=== PATIENT | female | born 1945 | race Two or more races ===

== ENCOUNTER 2017-08-23 00:16 | Emergency (ER) | payer MEDICARE, BC ==
[~2017-08-23] VITALS: Ht 154.9 cm; Wt 68.0 kg
[~2017-08-23 00:16] MED LIST: ALBU90OI INH; AMOX500; ASPI325; ASPI81EC PO; ATOR20 PO; Antivert25 MG PO; BASAGLAR K100 UNIT/1 SC; BIOTIN1 MG; BIOTIN1 MG PO; CEFP200 PO; CEPH500 PO; CHOL10002; CILO100 PO; CIPR250 PO; CIPR500 PO; CLIN300 PO; CLON.5 PO; CLOP75 PO; Cipro250 MG PO; Cleocin HCl300 MG PO; DIPASPER PO; DOCU100 PO; Diovan160 MG PO; Diovan320 MG PO; EXEN10PI SC; FURO40 PO; FURO80 PO; GABA100 PO; GABA300 PO; GLIP5ER PO; INSLI100I SUBQ; INSULANI SUBQ; INSULANPEN SC; Januvia50 MG PO; LIRA0.6P SC; LISI5 PO; MECL25 PO; METF500 PO; METF500C PO; Meribin5 MG PO; Micro-K10 MEQ PO; Motion Sickness25 M1 PO; NITR100CA PO; NYSTRI30T TOP; Novolog Fl100 UNIT/1 SC; OMEP40CA12 PO; ONDA4 PO; PIOG15 PO; POTCHL10ER PO; PREG100 PO; PREG25; PREG25 PO; PREG50 PO; PROM25 PO; Percocet 5-3251 EACH PO; Plavix75 MG PO; TRAM50; VALS80 PO; Zofran Odt4 MG SL; Zofran Odt8 MG SL; Zofran4 MG PO; [UNRECOGNIZED DRUG - SUPPLY] MC
[2017-08-23] MEDS ORDERED: ATOR10 PO (03:37)
[2017-08-23] MEDS ORDERED: CLON.5 PO (03:38)
== END 2017-08-23 03:46 | disposition home or self-care (01) ==
LOC: ER 00:16
DX: E11.65 Type 2 diabetes mellitus with hyperglycemia (principal); Z88.5 Allergy status to narcotic agent; Z88.8 Allergy status to other drugs, medicaments and biological substances; Z88.1 Allergy status to other antibiotic agents; Z79.899 Other long term (current) drug therapy; Z79.4 Long term (current) use of insulin; I10 Essential (primary) hypertension
CPT/HCPCS: 82947; 99283

== ENCOUNTER 2017-12-26 18:47 | Emergency (ER) | payer MEDICARE, BC ==
[~2017-12-26] VITALS: Ht 154.9 cm; Wt 77.1 kg
[~2017-12-26 18:47] MED LIST changes: +ATOR10 PO
[2017-12-26 19:44] LABS: Source, Urine Clean Catch
[2017-12-26 19:45] LABS: BASOPHILS PERCENT AUTO 0 % (0-2); EOSINOPHILS ABSOLUTE AUTO 0.01 K/mm3 (0.00-0.68); EOSINOPHILS PERCENT AUTO 0 % (0-6); Hematocrit 39.3 % (33.0-51.0); Hemoglobin 13.1 g/dL (11.5-16.0); IMMATURE GRAN ABSOLUTE AUTO 0.04 K/mm3 (0.00-0.10); IMMATURE GRAN PERCENT AUTO 1 % (0-1); LYMPHOCYTES ABSOLUTE AUTO 1.22 K/mm3 (0.84-5.20); LYMPHOCYTES PERCENT AUTO 15 % (21-46); MONOCYTES ABSOLUTE AUTO 0.34 K/mm3 (0.16-1.47); MONOCYTES PERCENT AUTO 4 % (4-13); Mean Corpuscular HGB 29.2 pg (26.0-34.0); Mean Corpuscular HGB Conc 33.3 g/dL (31.5-36.5); Mean Corpuscular Volume 88 fL (80-100); NEUTROPHILS ABSOLUTE AUTO 6.81 K/mm3 (1.96-9.15); NEUTROPHILS PERCENT AUTO 81 % (41-73); Platelet Count 143 K/mm3 (150-400); RDW Coefficient Variation 13.4 % (11.7-14.2); RDW Standard Deviation 42.7 fL (35.1-46.3); Red Blood Cell Count 4.48 M/mm3 (3.80-5.20); White Blood Cell Count 8.42 K/mm3 (4.00-11.30)
[2017-12-26 19:47] LABS: Mean Platelet Volume 13.7 fL (9.1-12.4)
[2017-12-26 19:47] LABS: Bilirubin, Urine Neg (Neg); Blood, Urine 1+ (Neg); Glucose Qualitative, Urine 4+ (Neg); Ketones, Urine Neg (Neg); Leukocyte Esterase, Urine 1+ (Neg); Nitrite, Urine Neg (Neg); Protein, Urine 1+ (Neg); Urobilinogen, Urine NORM (Normal)
[2017-12-26 19:48] LABS: Appearance, Urine Clear (Clear); Color, Urine Yellow (P-Yellow)
[2017-12-26 19:52] LABS: Bacteria Many /hpf; Squamous Epithelial Cells Rare /hpf (Few); White Blood Cells, Urine 0-2 /hpf (0-5)
[2017-12-26 20:01] LABS: Albumin, Blood 3.7 g/dL (3.4-5.0); Albumin/Globulin Ratio 0.9 (0.8-1.8); Bilirubin, Total 0.2 mg/dL (0.1-1.0); Bun/Creatinine Ratio 27.9 (12.0-20.0); Calcium, Blood 8.4 mg/dL (8.5-10.1); Creatinine, Blood 2.47 mg/dL (0.40-1.00); Potassium, Blood 4.6 mmol/L (3.5-5.5); Total Protein, Blood 7.7 g/dL (6.4-8.2)
[2017-12-27] MEDS ORDERED: CEPH500 PO (13:58)
== END 2017-12-26 22:26 | disposition home or self-care (01) ==
LOC: ER 18:47
PROVIDERS: Emergency Medicine
DX: E11.65 Type 2 diabetes mellitus with hyperglycemia (principal); I12.9 Hypertensive chronic kidney disease with stage 1 through stage 4 chronic kidney disease, or unspecified chronic kidney disease; E11.22 Type 2 diabetes mellitus with diabetic chronic kidney disease; N18.9 Chronic kidney disease, unspecified; K21.9 Gastro-esophageal reflux disease without esophagitis; E78.5 Hyperlipidemia, unspecified; Z86.73 Personal history of transient ischemic attack (TIA), and cerebral infarction without residual deficits; Z79.899 Other long term (current) drug therapy; Z79.4 Long term (current) use of insulin
CPT/HCPCS: 36415; 80053; 81001; 82947; 85025; 87077; 87086; 87186; 96360; 99284-25; J1815; J7030

== ENCOUNTER 2018-02-16 16:18 | Observation (INO) | payer MEDICARE, BC ==
[~2018-02-16] VITALS: Ht 157.5 cm; Wt 84.2 kg
[~2018-02-16 16:18] MED LIST changes: +CHOL10002 PO; +FURO20 PO
[2018-02-16 16:49] LABS: BASOPHILS ABSOLUTE AUTO 0.02 K/mm3 (0.00-0.23); BASOPHILS PERCENT AUTO 0 % (0-2); EOSINOPHILS ABSOLUTE AUTO 0.29 K/mm3 (0.00-0.68); EOSINOPHILS PERCENT AUTO 5 % (0-6); Hematocrit 36.9 % (33.0-51.0); Hemoglobin 11.8 g/dL (11.5-16.0); IMMATURE GRAN ABSOLUTE AUTO 0.02 K/mm3 (0.00-0.10); IMMATURE GRAN PERCENT AUTO 0 % (0-1); LYMPHOCYTES ABSOLUTE AUTO 0.95 K/mm3 (0.84-5.20); LYMPHOCYTES PERCENT AUTO 15 % (21-46); MONOCYTES PERCENT AUTO 8 % (4-13); Mean Corpuscular HGB 29.4 pg (26.0-34.0); Mean Corpuscular Volume 92 fL (80-100); NEUTROPHILS ABSOLUTE AUTO 4.38 K/mm3 (1.96-9.15); NEUTROPHILS PERCENT AUTO 71 % (41-73); Platelet Count 99 K/mm3 (150-400); RDW Coefficient Variation 14.3 % (11.7-14.2); RDW Standard Deviation 47.6 fL (35.1-46.3); Red Blood Cell Count 4.01 M/mm3 (3.80-5.20); White Blood Cell Count 6.16 K/mm3 (4.00-11.30)
[2018-02-16 16:50] LABS: Mean Platelet Volume 13.2 fL (9.1-12.4)
[2018-02-16 17:01] LABS: International Normalized Ratio 0.99; Prothrombin Time Results 10.2 Sec (9.7-11.5)
[2018-02-16 17:12] LABS: Alanine Aminotransfer (ALT/SGP 62 U/L (12-78); Albumin, Blood 3.2 g/dL (3.4-5.0); Albumin/Globulin Ratio 0.9 (0.8-1.8); Alk Phos 83 U/L (50-136); Anion Gap 12 mmol/L (6-16); Aspartate Aminotrans (AST/SGOT 44 U/L (12-37); Bilirubin, Total 0.2 mg/dL (0.1-1.0); Blood Urea Nitrogen 67 mg/dL (8-24); Bun/Creatinine Ratio 15.8 (12.0-20.0); CO2, Blood 21 mmol/L (21-32); Calcium, Blood 8.7 mg/dL (8.5-10.1); Chloride, Blood 110 mmol/L (98-108); Creatinine, Blood 4.23 mg/dL (0.40-1.00); Ethanol (Alcohol), Blood, Med <3 mg/dL; Globulin, Blood 3.7 g/dL (2.2-4.0); Glomerular Filtration Rate 11 (60-); Glucose, Blood 72 mg/dL (70-99); Potassium, Blood 3.5 mmol/L (3.5-5.5); Sodium, Blood 143 mmol/L (136-145); Total Protein, Blood 6.9 g/dL (6.4-8.2)
[2018-02-16 18:18] LABS: Source, Urine Catheter
[2018-02-16 18:34] LABS: Blood, Urine 4+ (Neg); Glucose Qualitative, Urine Neg (Neg); Ketones, Urine 1+ (Neg); Leukocyte Esterase, Urine 1+ (Neg); Nitrite, Urine Neg (Neg); Protein, Urine 2+ (Neg); Urobilinogen, Urine NORM (Normal)
[2018-02-16 19:05] LABS: U Amphetamine Screen Not Detected; U Barbituate Screen Not Detected; U Benzodiazapine Screen Not Detected; U Cannabinoids Screen Not Detected; U Cocaine Screen Not Detected; U Methadone Screen Not Detected; U Methamphetamine Screen Not Detected; U Opiates Screen Not Detected; U Phencyclidine Screen Not Detected
[2018-02-16 19:06] LABS: U Buprenorphine Screen Not Detected; U Oxycodone Screen Not Detected; U Propoxyphene Screen Not Detected
[2018-02-16 19:14] LABS: Appearance, Urine Clear (Clear); Bilirubin, Urine 2+ (Neg); Color, Urine Yellow (P-Yellow)
[2018-02-16 19:15] LABS: Bacteria Mod /hpf; Red Blood Cells, Urine 25-50 /hpf (0-2); Squamous Epithelial Cells Mod /hpf (Few)
[2018-02-17 06:12] LABS: Source, Urine Clean Catch
[2018-02-17 06:14] LABS: Bilirubin, Urine Neg (Neg); Blood, Urine 1+ (Neg); Glucose Qualitative, Urine 2+ (Neg); Ketones, Urine Neg (Neg); Leukocyte Esterase, Urine Neg (Neg); Nitrite, Urine Neg (Neg); Protein, Urine 2+ (Neg); Specific Gravity, Urine 1.015 (1.003-1.022); Urobilinogen, Urine NORM (Normal)
[2018-02-17 06:22] LABS: Hematocrit 32.3 % (33.0-51.0); Hemoglobin 10.2 g/dL (11.5-16.0); Mean Corpuscular HGB 28.6 pg (26.0-34.0); Mean Corpuscular HGB Conc 31.6 g/dL (31.5-36.5); Mean Corpuscular Volume 91 fL (80-100); RDW Coefficient Variation 14.3 % (11.7-14.2); RDW Standard Deviation 46.5 fL (35.1-46.3); Red Blood Cell Count 3.57 M/mm3 (3.80-5.20); White Blood Cell Count 4.77 K/mm3 (4.00-11.30)
[2018-02-17 06:47] LABS: Platelet Count 90 K/mm3 (150-400)
[2018-02-17 06:54] LABS: Albumin, Blood 2.6 g/dL (3.4-5.0); Albumin/Globulin Ratio 0.8 (0.8-1.8); Bilirubin, Total 0.2 mg/dL (0.1-1.0); Bun/Creatinine Ratio 18.9 (12.0-20.0); Calcium, Blood 7.9 mg/dL (8.5-10.1); Creatinine, Blood 3.17 mg/dL (0.40-1.00); Globulin, Blood 3.4 g/dL (2.2-4.0); Potassium, Blood 4.4 mmol/L (3.5-5.5)
[2018-02-17 07:13] LABS: Appearance, Urine Clear (Clear); Color, Urine Yellow (P-Yellow)
[2018-02-17 07:19] LABS: Bacteria Mod /hpf
[2018-02-17 07:20] LABS: Transitional Epithelial Cells Rare /hpf (0-Rare)
[2018-02-17 07:22] LABS: Red Blood Cells, Urine 0-2 /hpf (0-2)
[2018-02-17 07:25] LABS: Squamous Epithelial Cells Few /hpf (Few); White Blood Cells, Urine 0-2 /hpf (0-5)
[2018-02-17 07:28] LABS: Mucus Light (0-Heavy)
[2018-02-17] MEDS ORDERED: Humalog100 UNIT/1 (13:48)
== END 2018-02-17 14:54 | disposition home or self-care (01) ==
LOC: ER 16:18 → MEDS 16:19 → ER 19:58 → MEDS 19:58
PROVIDERS: Emergency Medicine; Internal Medicine
DX: G93.40 Encephalopathy, unspecified (principal); E11.649 Type 2 diabetes mellitus with hypoglycemia without coma; I12.9 Hypertensive chronic kidney disease with stage 1 through stage 4 chronic kidney disease, or unspecified chronic kidney disease; E11.22 Type 2 diabetes mellitus with diabetic chronic kidney disease; N18.3 Chronic kidney disease, stage 3 (moderate); N17.9 Acute kidney failure, unspecified; E78.00 Pure hypercholesterolemia, unspecified; E11.40 Type 2 diabetes mellitus with diabetic neuropathy, unspecified; K59.00 Constipation, unspecified; Z86.73 Personal history of transient ischemic attack (TIA), and cerebral infarction without residual deficits; Z79.899 Other long term (current) drug therapy; Z88.1 Allergy status to other antibiotic agents; Z88.5 Allergy status to narcotic agent; Z88.8 Allergy status to other drugs, medicaments and biological substances
CPT/HCPCS: 36415; 51701; 70450; 71046; 76770; 80053; 81001; 82947; 83605; 84145; 85025; 85027; 85610; 87040; 87086; 90686; 93005; 93010; 96361; 96374; 96375; 99285-25; G0008; G0378; G0480; J0696; J1650; J7030

== ENCOUNTER 2018-12-05 22:13 | Emergency (ER) | payer MEDICARE, BC ==
[~2018-12-05] VITALS: Ht 154.9 cm; Wt 86.3 kg
[~2018-12-05 22:13] MED LIST changes: +Bactrim Ds Tab1 EACH PO; +CEPH250A PO; +Humalog100 UNIT/1
== END 2018-12-06 00:07 | disposition home or self-care (01) ==
LOC: ER 22:13
DX: S09.90XA Unspecified injury of head, initial encounter (principal); W10.9XXA Fall (on) (from) unspecified stairs and steps, initial encounter; Z88.5 Allergy status to narcotic agent; Z88.1 Allergy status to other antibiotic agents; Z88.8 Allergy status to other drugs, medicaments and biological substances; Z79.899 Other long term (current) drug therapy; Z79.4 Long term (current) use of insulin; Z86.73 Personal history of transient ischemic attack (TIA), and cerebral infarction without residual deficits; E11.9 Type 2 diabetes mellitus without complications; I10 Essential (primary) hypertension
CPT/HCPCS: 70450; 99283-25; A9270

== ENCOUNTER 2019-03-24 14:39 | Emergency (ER) | payer MEDICARE, BC ==
[~2019-03-24] VITALS: Ht 154.9 cm; Wt 83.5 kg
== END 2019-03-24 15:59 | disposition home or self-care (01) ==
LOC: ER 14:39
DX: Z48.00 Encounter for change or removal of nonsurgical wound dressing (principal); I10 Essential (primary) hypertension; Z86.73 Personal history of transient ischemic attack (TIA), and cerebral infarction without residual deficits; Z88.5 Allergy status to narcotic agent; Z88.1 Allergy status to other antibiotic agents; Z88.8 Allergy status to other drugs, medicaments and biological substances; Z79.899 Other long term (current) drug therapy; Z79.4 Long term (current) use of insulin

== ENCOUNTER 2019-04-01 20:34 | Emergency (ER) | payer MEDICARE, BC ==
[~2019-04-01] VITALS: Ht 154.9 cm; Wt 88.5 kg
[2019-04-01] MEDS ORDERED: BASAGLAR SC (21:11)
[2019-04-01 21:12] LABS: BASOPHILS ABSOLUTE AUTO 0.02 K/mm3 (0.00-0.23); BASOPHILS PERCENT AUTO 0 % (0-2); EOSINOPHILS ABSOLUTE AUTO 0.12 K/mm3 (0.00-0.68); EOSINOPHILS PERCENT AUTO 3 % (0-6); Hematocrit 33.5 % (33.0-51.0); Hemoglobin 10.6 g/dL (11.5-16.0); IMMATURE GRAN ABSOLUTE AUTO 0.01 K/mm3 (0.00-0.10); IMMATURE GRAN PERCENT AUTO 0 % (0-1); LYMPHOCYTES ABSOLUTE AUTO 1.29 K/mm3 (0.84-5.20); LYMPHOCYTES PERCENT AUTO 26 % (21-46); MONOCYTES ABSOLUTE AUTO 0.35 K/mm3 (0.16-1.47); MONOCYTES PERCENT AUTO 7 % (4-13); Mean Corpuscular HGB 29.9 pg (26.0-34.0); Mean Corpuscular HGB Conc 31.6 g/dL (31.5-36.5); Mean Corpuscular Volume 95 fL (80-100); Mean Platelet Volume 12.7 fL (9.1-12.4); NEUTROPHILS ABSOLUTE AUTO 3.09 K/mm3 (1.96-9.15); NEUTROPHILS PERCENT AUTO 63 % (41-73); Platelet Count 137 K/mm3 (150-400); RDW Coefficient Variation 13.3 % (11.7-14.2); RDW Standard Deviation 45.7 fL (35.1-46.3); Red Blood Cell Count 3.54 M/mm3 (3.80-5.20); White Blood Cell Count 4.88 K/mm3 (4.00-11.30)
[2019-04-01 21:32] LABS: Albumin, Blood 3.2 g/dL (3.4-5.0); Albumin/Globulin Ratio 0.9 (0.8-1.8); Beta-hydroxybutyrate 0.7 mg/dL (0.2-2.8); Bilirubin, Total 0.3 mg/dL (0.1-1.0); Bun/Creatinine Ratio 17.9 (12.0-20.0); Calcium, Blood 8.5 mg/dL (8.5-10.1); Creatinine, Blood 2.35 mg/dL (0.40-1.00); Globulin, Blood 3.6 g/dL (2.2-4.0); Potassium, Blood 4.6 mmol/L (3.5-5.5); Total Protein, Blood 6.8 g/dL (6.4-8.2)
== END 2019-04-01 21:55 | disposition home or self-care (01) ==
LOC: ER 20:34
PROVIDERS: Physician Assistant
DX: E11.65 Type 2 diabetes mellitus with hyperglycemia (principal); I10 Essential (primary) hypertension; E11.9 Type 2 diabetes mellitus without complications; Z86.73 Personal history of transient ischemic attack (TIA), and cerebral infarction without residual deficits; Z88.5 Allergy status to narcotic agent; Z88.1 Allergy status to other antibiotic agents; Z88.8 Allergy status to other drugs, medicaments and biological substances; Z79.899 Other long term (current) drug therapy; Z79.4 Long term (current) use of insulin
CPT/HCPCS: 36415; 80053; 82010; 82947; 85025; 99283; J7030

== ENCOUNTER → 2019-08-01 | Outpatient (CLI) | payer MEDICARE, BC ==
[~2019-08-01] MED LIST changes: +BASAGLAR SC
[2019-08-01 18:35] LABS: BASOPHILS ABSOLUTE AUTO 0.04 K/mm3 (0.00-0.23); BASOPHILS PERCENT AUTO 1 % (0-2); EOSINOPHILS ABSOLUTE AUTO 0.16 K/mm3 (0.00-0.68); EOSINOPHILS PERCENT AUTO 2 % (0-6); Hematocrit 32.6 % (33.0-51.0); Hemoglobin 10.3 g/dL (11.5-16.0); IMMATURE GRAN ABSOLUTE AUTO 0.02 K/mm3 (0.00-0.10); IMMATURE GRAN PERCENT AUTO 0 % (0-1); LYMPHOCYTES ABSOLUTE AUTO 1.04 K/mm3 (0.84-5.20); LYMPHOCYTES PERCENT AUTO 14 % (21-46); MONOCYTES ABSOLUTE AUTO 0.46 K/mm3 (0.16-1.47); MONOCYTES PERCENT AUTO 6 % (4-13); Mean Corpuscular HGB 28.8 pg (26.0-34.0); Mean Corpuscular HGB Conc 31.6 g/dL (31.5-36.5); Mean Platelet Volume 12.4 fL (9.1-12.4); NEUTROPHILS ABSOLUTE AUTO 5.62 K/mm3 (1.96-9.15); NEUTROPHILS PERCENT AUTO 77 % (41-73); Platelet Count 304 K/mm3 (150-400); RDW Coefficient Variation 13.6 % (11.7-14.2); RDW Standard Deviation 45.3 fL (35.1-46.3); Red Blood Cell Count 3.58 M/mm3 (3.80-5.20); White Blood Cell Count 7.34 K/mm3 (4.00-11.30)
[2019-08-01 18:38] LABS: Mean Corpuscular Volume 91 fL (80-100)
[2019-08-01 18:44] LABS: Creatinine, Blood 2.08 mg/dL (0.40-1.00); Potassium, Blood 5.3 mmol/L (3.5-5.5)
[2019-08-01 18:45] LABS: Albumin/Globulin Ratio 0.6 (0.8-1.8); Bilirubin, Total 0.3 mg/dL (0.1-1.0); Bun/Creatinine Ratio 25.5 (12.0-20.0); Calcium, Blood 9.2 mg/dL (8.5-10.1); Globulin, Blood 5.2 g/dL (2.2-4.0); Magnesium, Blood 2.6 mg/dL (1.6-2.4); Phosphorus, Blood 3.1 mg/dL (2.5-4.9); Total Protein, Blood 8.2 g/dL (6.4-8.2)
== END | disposition home or self-care (01) ==
LOC: LAB EV 18:30 → LAB SHORT 18:30
PROVIDERS: Chiropractor
DX: T81.40XA Infection following a procedure, unspecified, initial encounter (principal); L08.9 Local infection of the skin and subcutaneous tissue, unspecified
CPT/HCPCS: 80053; 83735; 84100; 85025

== ENCOUNTER → 2019-09-15 | Outpatient (CLI) | payer MEDICARE, BC | END | disposition home or self-care (01) | LOC: LAB SHORT 13:44 → PLD 13:44 | DX: R22.1 Localized swelling, mass and lump, neck (principal) | CPT/HCPCS: 88173 ==

== ENCOUNTER → 2019-10-13 | Outpatient (CLI) | payer MEDICARE, BC ==
[2019-10-13 11:28] LABS: Albumin, Blood 3.8 g/dL (3.4-5.0); Albumin/Globulin Ratio 1.1 (0.8-1.8); Bilirubin, Total 0.7 mg/dL (0.1-1.0); Bun/Creatinine Ratio 13.8 (12.0-20.0); Calcium, Blood 8.9 mg/dL (8.5-10.1); Creatinine, Blood 2.1 mg/dL (0.40-1.00); Globulin, Blood 3.4 g/dL (2.2-4.0); Magnesium, Blood 2.2 mg/dL (1.6-2.4); Potassium, Blood 3.8 mmol/L (3.5-5.5); Total Protein, Blood 7.2 g/dL (6.4-8.2)
== END ==
LOC: LAB 11:01 → LAB SHORT 11:01
PROVIDERS: Internal Medicine Hematology & Oncology
DX: C03.0 Malignant neoplasm of upper gum (principal); N18.9 Chronic kidney disease, unspecified; D63.1 Anemia in chronic kidney disease
CPT/HCPCS: 80053; 83735

== ENCOUNTER → 2019-10-21 | Outpatient (CLI) | payer MEDICARE, BC ==
[2019-10-21 11:16] LABS: Albumin, Blood 3.1 g/dL (3.4-5.0); Albumin/Globulin Ratio 0.9 (0.8-1.8); Bilirubin, Total 0.6 mg/dL (0.1-1.0); Bun/Creatinine Ratio 16.1 (12.0-20.0); Calcium, Blood 8.5 mg/dL (8.5-10.1); Creatinine, Blood 1.49 mg/dL (0.40-1.00); Globulin, Blood 3.3 g/dL (2.2-4.0); Magnesium, Blood 2.2 mg/dL (1.6-2.4); Potassium, Blood 4.2 mmol/L (3.5-5.5); Total Protein, Blood 6.4 g/dL (6.4-8.2)
== END | disposition home or self-care (01) ==
LOC: LAB 10:35 → LAB SHORT 10:35
PROVIDERS: Internal Medicine Hematology & Oncology
DX: C03.0 Malignant neoplasm of upper gum (principal)
CPT/HCPCS: 80053; 83735

== ENCOUNTER → 2019-10-27 | Outpatient (CLI) | payer MEDICARE, BC ==
[~2019-10-27] MED LIST changes: +Diflucan100 MG PO; +HYDROCODONE-AC1 EAC7 PO; +IRBESARTAN300 MG PO; +LACT PO; +LINZESS145 MCG PO; +MOTION RELIEF25 MG PO; +OMEP20ER PO
[2019-10-27 11:10] LABS: Albumin, Blood 3.7 g/dL (3.4-5.0); Bilirubin, Total 0.6 mg/dL (0.1-1.0); Bun/Creatinine Ratio 19.4 (12.0-20.0); Calcium, Blood 8.9 mg/dL (8.5-10.1); Creatinine, Blood 1.91 mg/dL (0.40-1.00); Globulin, Blood 3.7 g/dL (2.2-4.0); Magnesium, Blood 2.4 mg/dL (1.6-2.4); Potassium, Blood 4.4 mmol/L (3.5-5.5); Total Protein, Blood 7.4 g/dL (6.4-8.2)
== END | disposition home or self-care (01) ==
LOC: LAB 10:42 → LAB SHORT 10:42
PROVIDERS: Internal Medicine Hematology & Oncology
DX: C03.0 Malignant neoplasm of upper gum (principal)
CPT/HCPCS: 80053; 83735

== ENCOUNTER 2019-10-29 00:08 | Day surgery (SDC) | payer MEDICARE, BC ==
[~2019-10-29 00:08] MED LIST changes: -Diflucan100 MG PO; -HYDROCODONE-AC1 EAC7 PO; -IRBESARTAN300 MG PO; -LACT PO; -LINZESS145 MCG PO; -MOTION RELIEF25 MG PO; -OMEP20ER PO
[2019-10-29] MEDS ORDERED: Diflucan100 MG PO (12:02)
[2019-10-29] MEDS ORDERED: HYDROCODONE-AC1 EAC7 PO (12:03)
[2019-10-29] MEDS ORDERED: LACT PO (12:04)
[2019-10-29] MEDS ORDERED: IRBESARTAN300 MG PO (12:05)
[2019-10-29] MEDS ORDERED: PREG100 PO (12:05)
[2019-10-29] MEDS ORDERED: BASAGLAR K100 UNIT/1 SC (12:06)
[2019-10-29] MEDS ORDERED: LINZESS145 MCG PO (12:07)
[2019-10-29] MEDS ORDERED: MOTION RELIEF25 MG PO (12:08)
[2019-10-29] MEDS ORDERED: CLOP75 PO (12:08)
[2019-10-29] MEDS ORDERED: OMEP20ER PO (12:09)
== END 2019-10-29 12:20 | disposition home or self-care (01) ==
LOC: ATC 00:08
DX: C05.0 Malignant neoplasm of hard palate (principal); R13.10 Dysphagia, unspecified
CPT/HCPCS: 96360; J7030

== ENCOUNTER 2019-10-30 00:22 | Day surgery (SDC) | payer MEDICARE, BC ==
[~2019-10-30 00:22] MED LIST changes: +Diflucan100 MG PO; +HYDROCODONE-AC1 EAC7 PO; +IRBESARTAN300 MG PO; +LACT PO; +LINZESS145 MCG PO; +MOTION RELIEF25 MG PO; +OMEP20ER PO
== END 2019-10-30 11:43 | disposition home or self-care (01) ==
LOC: ATC 00:22
DX: C05.0 Malignant neoplasm of hard palate (principal); R13.10 Dysphagia, unspecified
CPT/HCPCS: 96360; J7030

== ENCOUNTER 2019-10-31 10:21 | Day surgery (SDC) | payer MEDICARE, BC ==
[~2019-10-31] VITALS: Ht 154.9 cm; Wt 77.8 kg
--- NOTE | 2019-10-31 13:47 | NUR ---
10/31/19 1347 Peyton Falcon PACU NOTE PT RECEIVED FROM OR. DR. WORTHY AT BEDSIDE. BP 200s/80s. DR WORTHY AWARE NO NEW ORDERS. PT COUGHING SLIGHTLY, HAVING RED TINGED SPUTUM OUT, SUCTIONED X1, PT TOLERATED WELL. PT FOLLOWING COMMANDS APPPROPRIATELY, RESTING QUIETLY ON GURNEY. PEG TUBE IN PLACE TO LEFT ABDOMEN, NO BLEEDING NOTED.
--- NOTE | 2019-10-31 13:55 | NUR ---
10/31/19 1358 Vonnie Salas AIRWAY AND SEDATION MANAGED BY DR WORTHY---SEE ANESTHESIA RECORD
== END 2019-10-31 14:39 | disposition home or self-care (01) ==
LOC: ORSCSDS 10:21
PROVIDERS: Surgery
PROC: 0DH63UZ Insertion of Feeding Device into Stomach, Percutaneous Approach (ICD-10-PCS; principal; 2019-10-31 12:45)
DX: C03.0 Malignant neoplasm of upper gum (principal); E86.0 Dehydration; I10 Essential (primary) hypertension; E78.5 Hyperlipidemia, unspecified; N18.4 Chronic kidney disease, stage 4 (severe); E11.319 Type 2 diabetes mellitus with unspecified diabetic retinopathy without macular edema; Z79.4 Long term (current) use of insulin; Z79.01 Long term (current) use of anticoagulants; Z86.73 Personal history of transient ischemic attack (TIA), and cerebral infarction without residual deficits; Z79.899 Other long term (current) drug therapy
CPT/HCPCS: 82947; C1769; J0690; J2001; J7120

== ENCOUNTER 2019-12-11 18:44 | Inpatient (IN) | payer MEDICARE, BC ==
[~2019-12-11] VITALS: Ht 154.9 cm; Wt 72.8 kg
[~2019-12-11 18:44] MED LIST changes: +Cephalexin250 MG/5 M PT; +HUMALOG KW100 UNIT/1 SC; -Humalog100 UNIT/1; +Kristalose20 GM PT
[2019-12-11 20:33] LABS: BASOPHILS ABSOLUTE AUTO 0.07 K/mm3 (0.00-0.23); BASOPHILS PERCENT AUTO 0 % (0-2); EOSINOPHILS PERCENT AUTO 2 % (0-6); Hematocrit 43.3 % (33.0-51.0); IMMATURE GRAN ABSOLUTE AUTO 0.17 K/mm3 (0.00-0.10); IMMATURE GRAN PERCENT AUTO 1 % (0-1); LYMPHOCYTES ABSOLUTE AUTO 0.95 K/mm3 (0.84-5.20); LYMPHOCYTES PERCENT AUTO 4 % (21-46); MONOCYTES ABSOLUTE AUTO 1.04 K/mm3 (0.16-1.47); MONOCYTES PERCENT AUTO 4 % (4-13); Mean Corpuscular HGB 26.5 pg (26.0-34.0); Mean Corpuscular Volume 88 fL (80-100); Mean Platelet Volume 10.5 fL (9.1-12.4); NEUTROPHILS PERCENT AUTO 90 % (41-73); Platelet Count 318 K/mm3 (150-400); RDW Coefficient Variation 16.3 % (11.7-14.2); RDW Standard Deviation 52.3 fL (35.1-46.3); White Blood Cell Count 26.83 K/mm3 (4.00-11.30)
[2019-12-11 20:52] LABS: Albumin, Blood 2.5 g/dL (3.4-5.0); Albumin/Globulin Ratio 0.5 (0.8-1.8); Bilirubin, Total 0.3 mg/dL (0.1-1.0); Bun/Creatinine Ratio 15.5 (12.0-20.0); Creatinine, Blood 1.42 mg/dL (0.40-1.00); Potassium, Blood 4.2 mmol/L (3.5-5.5); Total Protein, Blood 7.5 g/dL (6.4-8.2)
[2019-12-12 10:42] LABS: BASOPHILS ABSOLUTE AUTO 0.09 K/mm3 (0.00-0.23); BASOPHILS PERCENT AUTO 0 % (0-2); EOSINOPHILS PERCENT AUTO 0 % (0-6); Hematocrit 36.7 % (33.0-51.0); Hemoglobin 11.3 g/dL (11.5-16.0); IMMATURE GRAN ABSOLUTE AUTO 0.18 K/mm3 (0.00-0.10); IMMATURE GRAN PERCENT AUTO 1 % (0-1); LYMPHOCYTES ABSOLUTE AUTO 0.65 K/mm3 (0.84-5.20); LYMPHOCYTES PERCENT AUTO 2 % (21-46); MONOCYTES ABSOLUTE AUTO 0.37 K/mm3 (0.16-1.47); MONOCYTES PERCENT AUTO 1 % (4-13); Mean Corpuscular HGB Conc 30.8 g/dL (31.5-36.5); Mean Corpuscular Volume 88 fL (80-100); Mean Platelet Volume 10.4 fL (9.1-12.4); NEUTROPHILS PERCENT AUTO 95 % (41-73); Platelet Count 302 K/mm3 (150-400); RDW Coefficient Variation 16.3 % (11.7-14.2); RDW Standard Deviation 51.6 fL (35.1-46.3); Red Blood Cell Count 4.19 M/mm3 (3.80-5.20); White Blood Cell Count 26.59 K/mm3 (4.00-11.30)
[2019-12-12 11:03] LABS: Bun/Creatinine Ratio 14.6 (12.0-20.0); Calcium, Blood 10.2 mg/dL (8.5-10.1); Creatinine, Blood 1.3 mg/dL (0.40-1.00); Potassium, Blood 3.8 mmol/L (3.5-5.5)
[2019-12-12] MEDS ORDERED: BASAGLAR K100 UNIT/1 SC (12:00)
--- NOTE | 2019-12-12 16:09 | NUR ---
ALERT TO SELF. PER E.R. RN AND HAVE BEEN NOTIFIED. CALLS AND PATIENT SCHEDULED AT ABOUT 5PM FOR PEG TUBE PLACEMENT. PER DAUGHTER NO NUTRITION PER PEG TUBE FOR FEW DAYS AND NO P.O. INTAKE FOR FEW DAYS. NECK SWOLLEN AND RED. PIC TAKEN. TALKS TO PATIENT ABOUT HOSPICE WITH DAUGHTER IN ROOM. UNLABORED RESPIRATIONS. IV INFUSING. NO ACUTE CHANGES. WCTM
--- NOTE | 2019-12-12 16:49 | NUR ---
TO DAY SURGERY. IV SALINE LOCKED. MASK ON PATIENT.
--- NOTE | 2019-12-12 16:52 | NUR ---
ADVISED THAT PATIENT C/O ITCHING TO NECK. MD TO ORDER MEDS.
--- NOTE | 2019-12-12 17:42 | NUR ---
LATE ENTRY 1505 DR. RANGEL ASSESSING PT AND CONSULTING WITH PT AND PT'S DAUGHTER AT BEDSIDE. AFTER ASSESSMENT, DR. RANGEL DECIDED TO CANCEL PLANNED PROCEDURE AND REQUEST CONSULT WITH GENERAL SURGEON. DR. RANGEL ANSWERED ALL PT AND PT'S DAUGHTER'S QUESTIONS AND BOTH STATE UNDERSTANDING AN NO FURTHER QUESTIONS AT THIS TIME.
--- NOTE | 2019-12-12 17:44 | NUR ---
PT SAFELY TRANSFERED BACK TO [facility] VIA GURNEY.
--- NOTE | 2019-12-12 18:09 | NUR ---
PER RICO KINNEY TO CALL SURGEON TO REPLACE PEG TUBE. PATIENT BACK IN ROOM WITH DAUGHTER.
[2019-12-12] MEDS ORDERED: BASAGLAR K100 UNIT/4 SC (18:30)
[2019-12-12] MEDS ORDERED: PANT40 PO (18:33)
[2019-12-12] MEDS ORDERED: AMOX-CLAV600 MG/51 PO (18:34)
--- NOTE | 2019-12-12 18:41 | NUR ---
FAXED REQUEST TO [facility] FOR CURRENT MEDS.
--- NOTE | 2019-12-12 19:03 | NUR ---
INITIAL PAL CARE CONSULT VISIT - Met pt and niki in her room after receiving new referral, chart review and case conference with pt's RN. Pt walking slowly back to bed from when I arrive. She has a large neck/submandibular mass that appears very red/purple and angry. When asked if she is hurting she says no, only that the mass area is very itchy. This has been reported by RN to Dr barr. I spoke to pt about goals of care, options, code status and progression of her cancer. 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 Recent ER visit notes reviewed also and today's Dr SANDOVAL. ENT Dr has recommended hospice. I asked pt what she understood or would like to ask about hospice. I explained palliation of s/s vs cont tx for her cancer. She says her sons are far away and she would like their input. I assured her these were not decisions she needed to make today and recommended speaking with her oncologist and PCP if she was undecided at the time of d/c. She appears overwhelmed and to have poor understanding of her illness, its progression and treatment. She made a statement to her nurse that she didn't really know that she had cancer despite undergoing treatment for it for some time. I left some written materials for niki, pt and pt's sons to review and talk about in regard to goals of care and code status wishes. We discussed in detail the contents of the brochures I gave them. I recommended that they do a phone or video conference with other family members that she felt were important to help support her in her decisions. I planned with pt and her daughter to follow up and visit tomorrow to answer any further questions and to assist with determining her goals and plans of care in accordance with what was important to her. At this time she wants to be a FULL CODE, which is in agreement with her current orders.
--- NOTE | 2019-12-13 04:57 | NUR ---
SUMMMARY: PT ALERT TO SELF, FAMILY, SURROUNDINGS AND YEAR. SHE'S PLEASANT AND COOPERATIVE W/CARE BUT IS MILDLY FORGETFULL AND SEEMS TO LACK UNDERSTANGING OF DX AND PROGNOSIS. CANCEROUS FACIAL MASS NOTED TO BE WARM, RED AND FIRM. SHE REMAINS NPO W/MOUTH SWABS PROVIDED AND PEG TUBE CLAMPED UNTIL FURTHER EVAL. Q6H CBG'S STABLE (LOW 200'S) AND NO SS INSULIN RECIEVED PER ENGINE CLEANER RECOMMENDATION D/T PRIOR ASSOCIATED HYPOGLYCEMIA. SX CX HASN'T BEEN RX'D AT THIS TIME BUT DISCUSSED SITUATION W/, SEE CX NOTE FOR DETAILS. CX'ING AND PALLIATIVE CARE IS INVOLVED. BENEDRYL CREAM WAS APPLIED TO FACE/NECK FOR RELIEF OF "ITCHING". FENTANYL 50MCG IV PRN RECIEVED FOR BARRETO, NECK AND FACE PAIN. X1 DOSE TORADOL WAS RX'D PRN FOR SEVERE PAIN IF FENTANYL IS INEFFECTIVE BUT PT HASN'T REQUIRED IT YET. IV ABX RECIEVED AND NS INFUSES AT 75 ML/HR, ORDERS TO SL AFTER THIS BAG. SHE'S REMAINS NSR AT 90'S BPM PER TELEMETRY AND HYDRALAZINE WAS RECIEVED THIS AM FOR SBP>160, WILL REEVALUATE FOR EFFECT. NO ACUTE CHANGES, VSS/AFEBRILE. WCTM/REPORT TO DAY RN.
[2019-12-13 05:02] LABS: BASOPHILS ABSOLUTE AUTO 0.06 K/mm3 (0.00-0.23); BASOPHILS PERCENT AUTO 0 % (0-2); EOSINOPHILS PERCENT AUTO 0 % (0-6); Hematocrit 38.9 % (33.0-51.0); Hemoglobin 11.7 g/dL (11.5-16.0); IMMATURE GRAN ABSOLUTE AUTO 0.29 K/mm3 (0.00-0.10); IMMATURE GRAN PERCENT AUTO 1 % (0-1); LYMPHOCYTES ABSOLUTE AUTO 0.68 K/mm3 (0.84-5.20); LYMPHOCYTES PERCENT AUTO 2 % (21-46); MONOCYTES ABSOLUTE AUTO 0.37 K/mm3 (0.16-1.47); MONOCYTES PERCENT AUTO 1 % (4-13); Mean Corpuscular HGB 26.7 pg (26.0-34.0); Mean Corpuscular HGB Conc 30.1 g/dL (31.5-36.5); Mean Corpuscular Volume 89 fL (80-100); Mean Platelet Volume 10.5 fL (9.1-12.4); NEUTROPHILS ABSOLUTE AUTO 32.75 K/mm3 (1.96-9.15); NEUTROPHILS PERCENT AUTO 96 % (41-73); Platelet Count 311 K/mm3 (150-400); RDW Coefficient Variation 16.5 % (11.7-14.2); RDW Standard Deviation 53.2 fL (35.1-46.3); Red Blood Cell Count 4.38 M/mm3 (3.80-5.20); White Blood Cell Count 34.15 K/mm3 (4.00-11.30)
[2019-12-13 05:28] LABS: Albumin, Blood 2.3 g/dL (3.4-5.0); Anion Gap 10 mmol/L (6-16); Blood Urea Nitrogen 25 mg/dL (8-24); Bun/Creatinine Ratio 19.1 (12.0-20.0); CO2, Blood 20 mmol/L (21-32); Calcium, Blood 10.1 mg/dL (8.5-10.1); Chloride, Blood 109 mmol/L (98-108); Creatinine, Blood 1.31 mg/dL (0.40-1.00); Glomerular Filtration Rate 42 (60-); Glucose, Blood 244 mg/dL (70-99); Phosphorus, Blood 2.5 mg/dL (2.5-4.9); Potassium, Blood 4.1 mmol/L (3.5-5.5); Sodium, Blood 139 mmol/L (136-145)
--- NOTE | 2019-12-13 10:30 | NUR ---
DAUGHTER WAS ADVISED TO LET US KNOW WHEN SHE LEAVES SO WE CAN KEEP CLOSER EYE ON PATIENT. PATIENT WAS OUT IN HALLWAY LOOKING FOR BATHROOM. TAKEN BACK TO ROOM AND TO HER BATHROOM. DAUGHTER NOT IN ROOM.
--- NOTE | 2019-12-13 11:58 | NUR ---
Spiritual care visit conducted. Patient is lying in bed and alert. Patient's daughter is bedside. They tell me about patient's medical conditions and the poor prognosis going forward. They also inform me of patient's upcoming procedure. Both patient and her daughter, although they are fearful, continue to have a sense of humor and a positive outlook. I listen empathically, normalize their experience, reinforce helpful attitudes and practices and provide prayer. Patient responds well and shows signs of reduced stress. I will continue to remain available to patient and family.
--- NOTE | 2019-12-13 13:29 | NUR ---
LEFT MESSAGE ON VOICE MAIL THAT PATIENT NPO AND NO FLUIDS RUNNING. HAVE NOT HEARD FROM SO NOT SURE IF GOING TO SURGERY. AWAITING ANY ORDERS
--- NOTE | 2019-12-13 15:36 | NUR ---
Return visit to support pt/natalio. Pt was asleep with many blankets pulled over her. Natalio in chair by window. Natalio did not have any questions. States her brother is pt's medical POA but is [place] the [place]. When asked if she and her brother spoke last night as suggested, natalio stated no. Pt is more confused today. Natalio reports that she wants full treatment. Gently discussed with natalio that sometimes there is no treatment left that is helpful and that the Drs were recommending hospice. Hospice care explained again. Natalio is very quiet and did not say anything. She appears exhausted also. Offered support and for her to call if she would like us to return. [facility] visit requested last night and it appears they have had the opportunity to visit today.
--- NOTE | 2019-12-13 16:16 | NUR ---
ALERT TO SELF AND FAMILY, NOT ALWAYS WHERE SHE IS. AWAITING SURGICAL CONSULT. PER HAD ALREADY TALKED TO AND REQUESTED THAT I PUT IN CONSULT SO IT GETS ON HIS ROTATION. PATIENT COOPERATIVE WITH CARE. GAIT LITTLE UNSTEADY. IMPULSIVE. DOES NOT ALWAYS ASK FOR ASSISTANCE. NECK AREA LOOKS BETTER THAN YESTERDAY W/REDNESS AND SWELLING DECREASED. NO ACUTE CHANGES. PEG TUBE CLAMPED. NO SIGNS OF INFECTION AROUND PEG TUBE SITE. WCTM
--- NOTE | 2019-12-13 17:52 | NUR ---
LEFT MESSAGE WITH DAY SURGERY TO SEE IF WAS COMING UP TO SEE PATIENT AFTER HE IS DONE IN SURGERY. RN STS HE WILL PROBABLY GET DONE AROUND 7PM. PATIENT AND DAUGHTER UPDATED.
--- NOTE | 2019-12-13 18:49 | NUR ---
CAME IN TO SEE PATIENT AND TOOK OUT PEG TUBE. VERY MINIMAL BLEEDING AT THIS TIME. DRESSING PLACED. IF INCREASE BLEEDING THEN WILL NEED A PRESSURE DRESSING. WILL GIVE REPORT TO KATHYA GÓMEZ.
[2019-12-14] MEDS ORDERED: BASAGLAR K100 UNIT/1 SC (01:17)
[2019-12-14] MEDS ORDERED: Percocet 5-3251 EACH PO (01:28)
[2019-12-14] MEDS ORDERED: Cephalexin250 MG/5 M PO (01:30)
[2019-12-14] MEDS ORDERED: LACT10SY PO (01:31)
[2019-12-14] MEDS ORDERED: ALUMINUM H320 MG/5 M PO (01:33)
--- NOTE | 2019-12-14 02:43 | NUR ---
12/13/192020 PT SITTING ON EDGE OF BED, REPORTS NECK PAIN, WILL GIVE FENTANYL AND EVAL FOR EFFECT. PT'S IV LEAKING, DC'D IV, WILL RESTART NEW IV. TELE SR AT 90. PT REQUESTING SIPS OF WATER, WILL SPEAK WITH DR ADALBERTO VILLARREAL AND IVF. NO OTHER APPARENT SIGNS OF DISTRESS. CALL LIGHT IS IN REACH. DAUGHTER IS IN ROOM.
--- NOTE | 2019-12-14 02:50 | NUR ---
12/13/192152 RESTARTED IV WITH US, 22G RAC, PT TOLERATED PROCEDURE WELL. NO APPARENT SIGNS OF DISTRESS. CALL LIGHT IS IN REACH. DAUGHTER IS IN ROOM.
--- NOTE | 2019-12-14 02:51 | NUR ---
0000 PT SITTING IN RECLINER BESIDE BED, DENIES NEED FOR ANYTHING AT THIS TIME. NO APPARENT SIGNS OF DISTRESS. CALL LIGHT IS IN REACH. DAUGHTER IS IN ROOM.
--- NOTE | 2019-12-14 02:55 | NUR ---
0150 PT'S R AC IF INFILTRATED, ER CAME AND WAS ABLE TO GET A NEW IV, NEW IV IS 22G L HAND. PT TOLERATED PROCEDURE WELL. NO APPARENT SIGNS OF DISTRESS. CALL LIGHT IS IN REACH. DAUGHTER IS IN ROOM.
--- NOTE | 2019-12-14 03:37 | NUR ---
PT LYING IN BED, EYES CLOSED, APPEARS TO BE RESTING. BREATHING IS EVEN, UNLABORED.NO APPARENT SIGNS OF DISTRESS. CALL LIGHT IS IN REACH. DAUGHTER IS IN ROOM.
--- NOTE | 2019-12-14 05:51 | NUR ---
PT IS AAO X 3-4, SOME OCCASIONAL PROBLEMS WITH MEMORY. DOES NOT REMEMBER HER CONDITIONS. ON RA. TELE SR AT 90. MN BS WAS 229, WILL SEE WHAT THE 0600 ONE WILL BE. REPORTED NECK PAIN, GOT FENTANYL. REPORTED A HEADACHE, GOT TYLENOL. DRESSING ON ABD IS C/D/I, PT WAS REMOVED YESTEREDAY BY DR TANNER DURING DAY SHIFT.
--- NOTE | 2019-12-14 05:59 | NUR ---
PT LYING IN RECLINER, EYES CLOSED, WAKES EASILY TO VERBAL STIMULI. NO APPARENT SIGNS OF DISTRESS. CALL LIGHT IS IN REACH. NO OTHER CHANGES THIS SHIFT. DAUGHTER IS IN ROOM.
[2019-12-14 08:43] LABS: BASOPHILS ABSOLUTE AUTO 0.06 K/mm3 (0.00-0.23); BASOPHILS PERCENT AUTO 0 % (0-2); EOSINOPHILS PERCENT AUTO 0 % (0-6); Hematocrit 33.8 % (33.0-51.0); Hemoglobin 10.6 g/dL (11.5-16.0); IMMATURE GRAN PERCENT AUTO 2 % (0-1); LYMPHOCYTES ABSOLUTE AUTO 0.76 K/mm3 (0.84-5.20); LYMPHOCYTES PERCENT AUTO 2 % (21-46); MONOCYTES ABSOLUTE AUTO 0.75 K/mm3 (0.16-1.47); MONOCYTES PERCENT AUTO 2 % (4-13); Mean Corpuscular HGB 27.2 pg (26.0-34.0); Mean Corpuscular HGB Conc 31.4 g/dL (31.5-36.5); Mean Corpuscular Volume 87 fL (80-100); Mean Platelet Volume 10.5 fL (9.1-12.4); NEUTROPHILS ABSOLUTE AUTO 30.22 K/mm3 (1.96-9.15); NEUTROPHILS PERCENT AUTO 93 % (41-73); Platelet Count 301 K/mm3 (150-400); RDW Coefficient Variation 16.5 % (11.7-14.2); RDW Standard Deviation 51.6 fL (35.1-46.3); White Blood Cell Count 32.49 K/mm3 (4.00-11.30)
[2019-12-14 09:12] LABS: Albumin, Blood 2.2 g/dL (3.4-5.0); Anion Gap 9 mmol/L (6-16); Blood Urea Nitrogen 38 mg/dL (8-24); CO2, Blood 23 mmol/L (21-32); Calcium, Blood 9.7 mg/dL (8.5-10.1); Chloride, Blood 107 mmol/L (98-108); Creatinine, Blood 1.41 mg/dL (0.40-1.00); Glomerular Filtration Rate 39 (60-); Glucose, Blood 280 mg/dL (70-99); Phosphorus, Blood 3.2 mg/dL (2.5-4.9); Potassium, Blood 3.5 mmol/L (3.5-5.5); Sodium, Blood 139 mmol/L (136-145)
--- NOTE | 2019-12-14 14:50 | NUR ---
Met pt sitting in a chair and her nurse attending to her needs , pt reportws doing well offered prayers .
--- NOTE | 2019-12-14 17:13 | NUR ---
PT IS A/OX3, COOPERATIVE, THE PT SEEMS TO BE IN A DEPRESSED MOOD, PT IS [place] ALSO, THE PTS DAUGHTER IS AT THE BEDSIDE FOR MOST OF THE DAY, THE PT IS UP WITH MINIMAL ASSIST USEING THE FWW, THE PT WAS UP IN THE SHOWER TODAY UNASSISTED, THE PT WAS MEDICATED FOR PAIN T/O THE DAY, THE PT WAS UP IN THE RECLINING CHAIR T/O THE DAY, PT WAS ON A CLEAR LIQUID DIET AND HAD VERY LITTLE PO INTAKE, CALL LIGHT IN REACH, NO OTHER CHANGES NOTICED THIS SHIFT
--- NOTE | 2019-12-15 01:05 | NUR ---
0005 PT NOTED TO HAVE NOSE BLEED RIGHT NARE BRIGHT RED BLOOD WITH NUMEROUS KLEENEX TISSUES NOTED IN WASTEBASKET; PTS BLOOD FLOW IS CONSTANT; THIS NURSE HELD TISSUE AND PRESSURE TO BILATERAL NARES FOR 20 MINUTES WITHOUT SUCCESS; PT CURRENTLY SITTING UP IN CHAIR; THIS NURSE EVEN TRIED PLACING A ROLLED PIECE OF TISSUE INTO RIGHT NARE WHICH PROCEEDED TO SOAK THRU LESS THAN 1 MINUTE. 0045 NO CHANGE NOTED AFTER ASSESSING PATIENT. [address]105 DR MOORE PAGED. 0120 DR MOORE ADVISED THE ABOVE WITH ORDERS FOR AFRIN SPRAY RECEIVED.
[2019-12-15 03:14] LABS: International Normalized Ratio 1.19; Prothrombin Time Results 12.6 Sec (9.7-11.5)
--- NOTE | 2019-12-15 03:30 | NUR ---
THIS LOSS PREVENTION ASSOCIATE AND RN NASRIN WHERE IN PTS ROOM WITH PTS DAUGHTER AND GRAND DAUGHTER. NASRIN STARTED TO TAKE OUT A BAD LEAKY IV IN PTS HAND. GRAND HOLLY STATED BE CAREFUL, SHES FRAGILE, ITS HURTING HER. RN AND THIS INSULATION NOZZLEMAN TRIED COMMUNICATING THAT HE IS BEING GENTLE HE CAN. SHE THEN ASKED IF SHE CAN DO IT HERSELF AND WHEN TOLD NO SHE BECAME CONFRONTATIONAL AND INCREASINGLY UPSET.
--- NOTE | 2019-12-15 05:07 | NUR ---
SHIFT SUMMARY: 74 Y/O OBESE FEMALE HAD RESTLESS NIGHT ALL SHIFT WHILE SITTING UP BEDSIDE LOUNGE CHAIR; PT HAD ACTIVE NOSE BLEED THIS SHIFT VIA LEFT NARE WITH DR MOORE PLACING RHINO ROCKET WITH NO MORE BLEEDING FROM THIS SITE NOTED; PT ALSO HAS SCANT BLEEDING NOTED FROM LEFT EAR AND LEFT EYE (MD AWARE); PT C/O HEADACHE WITH TYLENOL 650MG PO GIVEN WITH RELIEF FELT; PT ALERT AND ORIENTED X 3 AND ABLE TO FOLLOW SIMPLE VERBAL COMMANDS; PTS DAUGTHER AT SIDE LAST PART OF SHIFT; TELEMETRY REFLECTS NSR WITH HEART RATE 84; PT HAD ONE EPISODE OF HYPERTENSION 174/80 WITH APRESOLINE 10MG IVP GIVEN WITH DECREASED BP NOTED; PTS ABD MEPLEX DRESSING DRY AND INTACT AT OLD PEG TUBE SITE; DENIES NAUSEA; CALL LIGHT AT SIDE IN LOUNGE CHAIR.
[2019-12-15 09:01] LABS: BASOPHILS ABSOLUTE AUTO 0.04 K/mm3 (0.00-0.23); BASOPHILS PERCENT AUTO 0 % (0-2); EOSINOPHILS PERCENT AUTO 0 % (0-6); Hematocrit 35.5 % (33.0-51.0); Hemoglobin 11.1 g/dL (11.5-16.0); IMMATURE GRAN PERCENT AUTO 1 % (0-1); LYMPHOCYTES ABSOLUTE AUTO 0.73 K/mm3 (0.84-5.20); LYMPHOCYTES PERCENT AUTO 3 % (21-46); MONOCYTES ABSOLUTE AUTO 0.68 K/mm3 (0.16-1.47); MONOCYTES PERCENT AUTO 2 % (4-13); Mean Corpuscular HGB 26.9 pg (26.0-34.0); Mean Corpuscular HGB Conc 31.3 g/dL (31.5-36.5); Mean Corpuscular Volume 86 fL (80-100); Mean Platelet Volume 10.4 fL (9.1-12.4); NEUTROPHILS ABSOLUTE AUTO 27.11 K/mm3 (1.96-9.15); NEUTROPHILS PERCENT AUTO 94 % (41-73); Platelet Count 307 K/mm3 (150-400); RDW Coefficient Variation 16.3 % (11.7-14.2); RDW Standard Deviation 50.3 fL (35.1-46.3); Red Blood Cell Count 4.13 M/mm3 (3.80-5.20); White Blood Cell Count 28.86 K/mm3 (4.00-11.30)
[2019-12-15 09:15] LABS: Albumin, Blood 2.5 g/dL (3.4-5.0); Anion Gap 10 mmol/L (6-16); Blood Urea Nitrogen 40 mg/dL (8-24); Bun/Creatinine Ratio 26.8 (12.0-20.0); CO2, Blood 24 mmol/L (21-32); Calcium, Blood 9.6 mg/dL (8.5-10.1); Chloride, Blood 104 mmol/L (98-108); Creatinine, Blood 1.49 mg/dL (0.40-1.00); Glomerular Filtration Rate 36 (60-); Glucose, Blood 323 mg/dL (70-99); Phosphorus, Blood 3.1 mg/dL (2.5-4.9); Potassium, Blood 3.3 mmol/L (3.5-5.5); Sodium, Blood 138 mmol/L (136-145)
--- NOTE | 2019-12-15 15:27 | NUR ---
BROUGHT TO [facility] ADMISSION TO UNIT STARTED. VSS GRANDDAUGHTER AT BEDSIDE.
--- NOTE | 2019-12-15 15:47 | NUR ---
PT TAKEN TO [facility] FOR PEG TUBE PLACEMENT, PT APPEARED TO BE BREATHING EASILY AT THE TIME OF TRANSFER, PT WAS A/O, ALEJANDRINA WITH THE PT
--- NOTE | 2019-12-15 17:02 | NUR ---
12/15/19 1702 Delta Tuttle See Anesthesia record. Bite Block Placed History, Chart, Medications and Allergies reviewed before start of procedure. MONITOR INTACT WITH CONTINUOUS PULSE OXIMETRY AND INTERMITTENT BP.O2 VIA N/C INTACT THROUGHOUT SEDATION/PROCEDURE.
--- NOTE | 2019-12-15 22:16 | NUR ---
2030 DR PANIAGUA AT BEDSIDE AND ADVISED PT AND DAUGHTER HECTOR THAT PEG TUBE PLACEMENT SURGERY WILL NOT OCCUR AND THAT SHE CAN EAT TONIGHT CLEAR LIQUID DIET.
--- NOTE | 2019-12-16 04:52 | NUR ---
SHIFT SUMMARY: 74 Y/O OBESE FEMALE RESTED COMFORTABLY ALL SHIFT IN BEDSIDE LOUNGE CHAIR WITH DAUGHTER HECTOR AT SIDE WHOM VERY SUPPORTIVE; C/O ABD PAIN/THROAT PAIN RATED 6/10 WITH FENTANYL 5O0MCG IVP X 1 GIVEN WITH RELIEF FELT; PT HAS LEFT NARE RHINO ROCKET STILL INTACT WITH NO ACTIVE BLEEDING NOTED FROM EITHER NARES/EARS OR ORBITALS; PT ALERT AND ORIENTED X 4; PTS ABD DRESSING DRY AND INTACT WITH PEG TUBE PLACEMENT ON HOLD TILL DECISION MADE WHEN AND WHERE TO PERFORM TASK SURGICAL ATTEMPT TO PLACE PEG TUBE 12/14 WAS UNSUCCESSFUL; PT TOLERATING CLEAR LIQUIDS; UP BATHROOM VOID X 1 STANDBY ASSIST WITH GAIT SLOW AND STEADY; BEDSIDE CALL LIGHT AT SIDE.
[2019-12-16 05:01] LABS: BASOPHILS ABSOLUTE AUTO 0.04 K/mm3 (0.00-0.23); BASOPHILS PERCENT AUTO 0 % (0-2); EOSINOPHILS PERCENT AUTO 0 % (0-6); Hematocrit 36.4 % (33.0-51.0); Hemoglobin 11.2 g/dL (11.5-16.0); IMMATURE GRAN PERCENT AUTO 1 % (0-1); LYMPHOCYTES PERCENT AUTO 3 % (21-46); MONOCYTES ABSOLUTE AUTO 0.68 K/mm3 (0.16-1.47); MONOCYTES PERCENT AUTO 2 % (4-13); Mean Corpuscular HGB 26.2 pg (26.0-34.0); Mean Corpuscular HGB Conc 30.8 g/dL (31.5-36.5); Mean Corpuscular Volume 85 fL (80-100); Mean Platelet Volume 10.3 fL (9.1-12.4); NEUTROPHILS ABSOLUTE AUTO 28.11 K/mm3 (1.96-9.15); NEUTROPHILS PERCENT AUTO 94 % (41-73); Platelet Count 292 K/mm3 (150-400); RDW Coefficient Variation 16.4 % (11.7-14.2); RDW Standard Deviation 50.3 fL (35.1-46.3); Red Blood Cell Count 4.27 M/mm3 (3.80-5.20); White Blood Cell Count 29.93 K/mm3 (4.00-11.30)
[2019-12-16 05:21] LABS: Albumin, Blood 2.5 g/dL (3.4-5.0); Anion Gap 8 mmol/L (6-16); Blood Urea Nitrogen 39 mg/dL (8-24); Bun/Creatinine Ratio 26.7 (12.0-20.0); CO2, Blood 25 mmol/L (21-32); Calcium, Blood 9.5 mg/dL (8.5-10.1); Chloride, Blood 104 mmol/L (98-108); Creatinine, Blood 1.46 mg/dL (0.40-1.00); Glomerular Filtration Rate 37 (60-); Glucose, Blood 282 mg/dL (70-99); Phosphorus, Blood 2.6 mg/dL (2.5-4.9); Potassium, Blood 3.4 mmol/L (3.5-5.5); Sodium, Blood 137 mmol/L (136-145)
--- NOTE | 2019-12-16 07:00 | NUR ---
pt asleep wakes to verbal stimuli pt daughter also asleep rhinorocket in place no bleeding at this time from the nare will ask dr how long it will remain
--- NOTE | 2019-12-16 08:01 | NUR ---
meds given put benadryl cream at bedside if pt wants to use pt stated the redness and swelling has not changed
--- NOTE | 2019-12-16 09:11 | NUR ---
pt blowing her nose and the rhinorocket fell out pt currently not bleeding will replace if she starts
--- NOTE | 2019-12-16 09:25 | NUR ---
STILL NO BLEEDING
--- NOTE | 2019-12-16 10:24 | NUR ---
dietary by to see pt will start ppn
--- NOTE | 2019-12-16 12:26 | NUR ---
pt visiting with family and her dog
--- NOTE | 2019-12-16 13:45 | NUR ---
pt had some soup that her family brought in but only had small amt of it
--- NOTE | 2019-12-16 15:59 | NUR ---
dr tse by to see pt power lisandrode placed pt got in the bed for placement bu t after went back into the chair
--- NOTE | 2019-12-16 17:52 | NUR ---
pt sitting up in chair pt daughter at bedside discussed pt ppn will give iv abx first
--- NOTE | 2019-12-16 18:11 | NUR ---
pt req tylenol for h/a
--- NOTE | 2019-12-16 19:55 | NUR ---
BP 204/91; APRESOLINE 20MG IVP GIVEN.
--- NOTE | 2019-12-16 22:13 | NUR ---
PT RESTING COMFORTABLY IN BED WITH DAUGHTER HECTOR AT SIDE; NO ACTIVE BLEEDING FROM NARES/EARS OR ORBITALS NOTED; ALERT AND ORIENTED X 4; DENIES PAIN.
--- NOTE | 2019-12-17 04:27 | NUR ---
SHIFT SUMMARY: 74 Y/O OBESE FEMALE RESTED COMFORTABLY ALL SHIFT; DENIES PAIN OR NAUSEA; NO ACTIVE BLEEDING NOTED VIA NARES/EAR OR ORBITALS; ABD DRESSING DRY AND INTACT OVER OLD PEG INSERTION SITE; ALERT AND ORIENTED X 4; PT CONTINUES TO HAVE REDNESS AROUND NECK; VOICE CLEAR AND AUDIBLE; PT TOLERATING PPN; PT SLEPT BEDSIDE LOUNGE CHAIR ALL SHIFT; CALL LIGHT AT SIDE.
[2019-12-17 05:49] LABS: Hematocrit 35.7 % (33.0-51.0); Hemoglobin 11.4 g/dL (11.5-16.0); Mean Corpuscular HGB 27.3 pg (26.0-34.0); Mean Corpuscular HGB Conc 31.9 g/dL (31.5-36.5); Mean Corpuscular Volume 85 fL (80-100); Mean Platelet Volume 10.9 fL (9.1-12.4); Platelet Count 307 K/mm3 (150-400); RDW Coefficient Variation 16.3 % (11.7-14.2); RDW Standard Deviation 50.9 fL (35.1-46.3); Red Blood Cell Count 4.18 M/mm3 (3.80-5.20); White Blood Cell Count 32.64 K/mm3 (4.00-11.30)
[2019-12-17 06:14] LABS: Albumin, Blood 2.5 g/dL (3.4-5.0); Anion Gap 8 mmol/L (6-16); Blood Urea Nitrogen 40 mg/dL (8-24); Bun/Creatinine Ratio 27.8 (12.0-20.0); CO2, Blood 24 mmol/L (21-32); Calcium, Blood 9.8 mg/dL (8.5-10.1); Chloride, Blood 107 mmol/L (98-108); Creatinine, Blood 1.44 mg/dL (0.40-1.00); Glomerular Filtration Rate 38 (60-); Glucose, Blood 291 mg/dL (70-99); Magnesium, Blood 2.3 mg/dL (1.6-2.4); Phosphorus, Blood 2.7 mg/dL (2.5-4.9); Potassium, Blood 3.4 mmol/L (3.5-5.5); Sodium, Blood 139 mmol/L (136-145); Triglycerides 288 mg/dL (30-160)
--- NOTE | 2019-12-17 16:39 | NUR ---
Brief visit this afternoon. Pt resting in recliner chair, no family present. Pt appears mildly withdrawn. Pt responds to questions but only in 1 to 3 word sentences. Pt does not engage in conversation. Pt denies pain and anxiety at this time. Pt reports no concerns at this time. Spoke with Bedside RN Rj and discussed case. Plan for Pt to receive feeding g tube on Thursday or Thursday. Palliative Care will remain available.
--- NOTE | 2019-12-17 19:42 | NUR ---
SHIFT SUMMARY: NO ACUTE CHANGES TO REPORT THIS SHIFT. PT A&O; CALM AND COOPERATIVE WITH CARE. NO C/O PAIN THIS SHIFT. AWAITING INTERVENTIONAL RADIOLOGY CONSULT FOR PEG TUBE REPLACE. PPN @ 75 CONTINUING; IV ABX CONTINUING. REPROT GIVEN TO ONCOMING RN.
--- NOTE | 2019-12-18 00:52 | NUR ---
12/17/191999 THIS NURSE REMOVED ABD DRESSING WITH OLD DRIED RED DRAINAGE NOTED; WOUND WELL APPROXIMATED WITH NO DRAINAGE; THIS NURSE CLEANSED WOUND CLEANSER, APPLIED STERILE 4 X 4 AND MEPLEX TAPE TO SITE; PT TOLERATED PROCEDURE WELL.
[2019-12-18 05:05] LABS: BASOPHILS ABSOLUTE AUTO 0.05 K/mm3 (0.00-0.23); BASOPHILS PERCENT AUTO 0 % (0-2); EOSINOPHILS ABSOLUTE AUTO 0.18 K/mm3 (0.00-0.68); EOSINOPHILS PERCENT AUTO 1 % (0-6); Hematocrit 39.1 % (33.0-51.0); Hemoglobin 12.1 g/dL (11.5-16.0); IMMATURE GRAN ABSOLUTE AUTO 0.45 K/mm3 (0.00-0.10); IMMATURE GRAN PERCENT AUTO 1 % (0-1); LYMPHOCYTES ABSOLUTE AUTO 1.16 K/mm3 (0.84-5.20); LYMPHOCYTES PERCENT AUTO 3 % (21-46); MONOCYTES ABSOLUTE AUTO 1.21 K/mm3 (0.16-1.47); MONOCYTES PERCENT AUTO 4 % (4-13); Mean Corpuscular HGB 26.7 pg (26.0-34.0); Mean Corpuscular HGB Conc 30.9 g/dL (31.5-36.5); Mean Corpuscular Volume 86 fL (80-100); NEUTROPHILS PERCENT AUTO 91 % (41-73); Platelet Count 266 K/mm3 (150-400); RDW Coefficient Variation 16.7 % (11.7-14.2); RDW Standard Deviation 52.1 fL (35.1-46.3); Red Blood Cell Count 4.53 M/mm3 (3.80-5.20); White Blood Cell Count 34.15 K/mm3 (4.00-11.30)
[2019-12-18 05:23] LABS: Bun/Creatinine Ratio 26.8 (12.0-20.0); Calcium, Blood 9.9 mg/dL (8.5-10.1); Creatinine, Blood 1.57 mg/dL (0.40-1.00); Magnesium, Blood 2.4 mg/dL (1.6-2.4); Phosphorus, Blood 2.9 mg/dL (2.5-4.9); Potassium, Blood 3.3 mmol/L (3.5-5.5)
--- NOTE | 2019-12-18 06:35 | NUR ---
SHIFT SUMMARY: 74 Y/O OBESE FEMALE HAD RESTLESS NIGHT AT SIDE; PT C/O HEADACHE AND ABD PAIN RATED 7/10 WITH TYLENOL 650MG PO GIVEN TWICE AND FENTANYL 50MCG IVP X 1 GIVEN WITH RELIEF FELT; PTS ABD OLD PEG TUBE INSERTION SITE SCABBED OVER WITH DRESSING DRY AND INTACT; PTS LEFT UPPER ARM POWER GLIDE WENT SQ WITH NEW POWER GLIDE STARTED IN RIGHT UPPER ARM; PT CONTINUES TO HAVE ZERO BLEEDING EPISODES THIS SHIFT; PTS NECK RED AND HARD TO TOUCH UNDER CHIN; PT CONTINUES TO SWALLOW VERY SMALL AMOUNTS CLEAR LIQUID FLUIDS SPARINGLY AT TIMES; PTS DAUGHTER--HECTOR SPENT 1/2 NIGHT AT SIDE AND VERY SUPPORTIVE; DENIES NAUSEA; PT PREFERS TO SLEEP IN BEDSIDE LOUNGE CHAIR MAJORITY OF TIME; CALL LIGHT AT SIDE.
--- NOTE | 2019-12-18 19:43 | NUR ---
SHIFT SUMMARY: NO ACUTE EVENTS TO REPORT THIS SHIFT. PT A&O; CALM AND COOPERATIVE WITH CARE. MEDICATED FOR HEADACHE PAIN PER EMAR. PPN @ 96 (TARGET RATE); IV ABX CONTINUING. AWAITING PEG TUBE PLACEMENT-INTERVENTIONAL RADIOLOGY. REPORT GIVEN TO ONCOMING RN.
[2019-12-19 06:03] LABS: Bun/Creatinine Ratio 29.5 (12.0-20.0); Calcium, Blood 9.5 mg/dL (8.5-10.1); Creatinine, Blood 1.39 mg/dL (0.40-1.00); Magnesium, Blood 2.4 mg/dL (1.6-2.4); Phosphorus, Blood 3.2 mg/dL (2.5-4.9); Potassium, Blood 3.8 mmol/L (3.5-5.5)
--- NOTE | 2019-12-19 06:20 | NUR ---
SHIFT SUMMARY A/O, ABLE TO MAKE NEEDS KNOWN. COOPERATIVE WITH CARE. ANSWERS QUESTIONS APPROPRIATELY. IMPULSIVE AT TIMES. SBA TO BATHROOM. C/O HEADACHE/NECK PAIN; MEDICATED PER EMAR. VSS/AFEBRILE. TPN CONTINUES TO INFUSE TO PG WITHOUT COMPLICATIONS. APPEARED TO REST OFF AND ON DURING THE NIGHT. HYPERTENSIVE THIS AM; HOWEVER ON TREND WITH PREVIOUS PRESSURES. NO OTHER ACUTE CHANGES NOTED OVERNIGHT. UP IN CHAIR T/O SHIFT. CALL LIGHT AND BELONGINGS WITHIN REACH. WCTM. REPORT TO ONCOMING RN.
--- NOTE | 2019-12-19 10:21 | NUR ---
Met pt. sitting on a chair resting , pt reports ddoing well , encouraged pt. offered prayers and spiritual support.
--- NOTE | 2019-12-19 12:37 | NUR ---
DR HOFFMAN IN TO SEE PT, CONSENT FOR PEG TUBE SURG SIGNED, DR GUZMÁN SURG THIS AFTERNOON.
--- NOTE | 2019-12-19 15:46 | NUR ---
SUMMARY PT IS A/O X4 THIS AM, PLEASANT AFFECT. NPO FOR PEG TUBE PLACEMENT TODAY. HX SQUAMOUS CELL NECK CANCER, NECK & R SIDE OF FACE RED/SWOLLEN/TENDER. SHE STATE PAINFUL THIS AM, FENTANYL 25 MCG GIVEN FOR RELIEF. SHE WENT OUT TO FOR PEG SURG APPROX [address] HOFFMAN, RETURN TO ROOM APPROX 1430. DR HOFFMAN PLACE ORDERS, OK TO USE PEG TODAY, SENIOR UNIX ADMINISTRATOR NOTIFIED, WILL REVIEW & PLACE TF ORDERS. DR AQUINO NOTIFIED, STOP PPN @ THIS TIME. HOB ELEVATED @ 45 DEGREES PER ORDER. DAUGHTER HECTOR @ BEDSIDE. PT SOMEWHAT DROWSY FOLLOWING SURG. VSS.
--- NOTE | 2019-12-20 07:05 | NUR ---
SHIFT SUMMARY: SBP 165 THIS AM. APRESOLINE ADMINISTERED, SBP DOWN TO 153 AFTER 15 MINUTES. NECK CONT TO BE RED, SWOLLEN, FIRM, AND HOT TO THE TOUCH. TYLENOL ADMINISTERED X 2 FOR PAIN. PT STATES HELPFUL. PT DENIES PAIN AT NEW GT SITE. SCANT AMT OF SANG DRAINAGE ON DRAIN SPONGE. DRAIN SPONGE CHANGED, PT KELLI WELL. 60CC RESIDUAL REINSTILLED INTO GT. 60CC WARM WATER INSTILLED INTO GT. PATENT. PT KELLI WELL. ABD SOFT, NONTENDER, NON-DISTENDED. BT HYPOACTIVE. NO ACUTE CHANGES OVERNIGHT. WILL CONT TO MONITOR.
[2019-12-20] MEDS ORDERED: ACET325UDC PO (10:24)
[2019-12-20] MEDS ORDERED: FURO40 PO (10:24)
[2019-12-20] MEDS ORDERED: AMLO5 PO (10:24)
[2019-12-20] MEDS ORDERED: DOCU LIQUI50 MG/5 ML PT (10:24)
[2019-12-20] MEDS ORDERED: HYDRA25 PO (10:25)
[2019-12-20] MEDS ORDERED: POTA20LUD PT (10:59)
--- NOTE | 2019-12-20 11:07 | NUR ---
Met pt sitting in a chair and talking with her daughter on visit, pt is doing fine offered prayers .
--- NOTE | 2019-12-20 12:04 | NUR ---
DISCHARGE THIS AM DR AQUINO IN TO SEE PT & HER DAUGHTER HECTOR, REVIEW HOSP TX & PLAN FOR GOING HOME TODAY. STATE IF PT TOLERATE 1ST TUBE FEED VIA NEW PEG SHE MAY GO HOME THIS AM. JEVITY 1.5 CARTON w 100ML WATER FLUSH BEFORE & AFTER GIVEN. PT TOLERATE WELL, DAUGHTER PROVIDED INSTRUCT, OBSERVED. DR JACOBSEN D/C ORDERS. INSPECTOR TIMERS PROVIDE SUPPLY OF FORMULA FOR HOME. [facility] RESUMED BY BATCH TRUCKER. NEW SCRIPTS FAXED TO [facility]. F/U APPOINT w ONCOLOGIST ARRANGED, PT STATE HAS APPT w PCP TOMORROW. D/C INSTRUCT REVIEWED. W/C ESCORT FROM HOSP PROVIDED. THEY ARE PLEASANT/APPRECIATIVE. PG IV RUE D/C INTACT PRIOR TO D/C.
[2019-12-30] MEDS ORDERED: Cephalexin250 MG/5 M PT (19:58)
== END 2019-12-20 12:04 | disposition home or self-care (01) | DRG 393 ==
LOC: ER 18:44 → ERHOLD 12-12 01:32 → MEDS 12-12 01:32
PROVIDERS: Family Medicine; Internal Medicine; Internal Medicine Gastroenterology; Physician Assistant; ADMIT Internal Medicine
PROC: 2Y41X5Z Packing of Nasal Region using Packing Material (ICD-10-PCS; 2019-12-15)
PROC: 0DJ08ZZ Inspection of Upper Intestinal Tract, Via Natural or Artificial Opening Endoscopic (ICD-10-PCS; principal; 2019-12-15 10:45)
PROC: 0DH63UZ Insertion of Feeding Device into Stomach, Percutaneous Approach (ICD-10-PCS; 2019-12-19)
PROC: 3E0G76Z Introduction of Nutritional Substance into Upper GI, Via Natural or Artificial Opening (ICD-10-PCS; 2019-12-19)
PROC: BD12ZZZ Fluoroscopy of Stomach (ICD-10-PCS; 2019-12-19)
DX: K94.23 Gastrostomy malfunction (principal); A41.9 Sepsis, unspecified organism; L03.221 Cellulitis of neck; C76.0 Malignant neoplasm of head, face and neck; D89.9 Disorder involving the immune mechanism, unspecified; E78.5 Hyperlipidemia, unspecified; E86.0 Dehydration; I12.9 Hypertensive chronic kidney disease with stage 1 through stage 4 chronic kidney disease, or unspecified chronic kidney disease; E11.22 Type 2 diabetes mellitus with diabetic chronic kidney disease; N18.3 Chronic kidney disease, stage 3 (moderate); Z51.5 Encounter for palliative care; Z92.21 Personal history of antineoplastic chemotherapy; Z92.3 Personal history of irradiation; R13.10 Dysphagia, unspecified; Z53.8 Procedure and treatment not carried out for other reasons; Z86.73 Personal history of transient ischemic attack (TIA), and cerebral infarction without residual deficits; Z79.4 Long term (current) use of insulin; K74.60 Unspecified cirrhosis of liver; R04.0 Epistaxis; E87.6 Hypokalemia; E11.65 Type 2 diabetes mellitus with hyperglycemia; D63.1 Anemia in chronic kidney disease
CPT/HCPCS: 36415; 49440; 70450; 70490; 74176; 80048; 80053; 80069; 82947; 83605; 83690; 83735; 84100; 84478; 85025; 85027; 85610; 87040; 96361; 96365; 96375; 99152; 99153; 99285-25; A9270-GY; C1751; C1769; C9113; J0360; J0690; J1100; J1170; J1650; J1885; J1940; J2250; J2405; J2543; J2704; J3010; J3480; J7030; J7040; J7042; J7050; J7120; Q9967; U0002

== ENCOUNTER 2019-12-31 10:50 | Emergency (ER) | payer MEDICARE, BC ==
[~2019-12-31] VITALS: Ht 154.9 cm; Wt 79.8 kg
[~2019-12-31 10:50] MED LIST changes: +ACET325UDC PO; +ALUMINUM H320 MG/5 M PO; +AMLO5 PO; +AMOX-CLAV600 MG/51 PO; +BASAGLAR K100 UNIT/4 SC; +Cephalexin250 MG/5 M PO; +DOCU LIQUI50 MG/5 ML PT; +HYDRA25 PO; +LACT10SY PO; +PANT40 PO; +POTA20LUD PT
== END 2019-12-31 12:14 | disposition home or self-care (01) ==
LOC: ER 10:50
DX: Z48.3 Aftercare following surgery for neoplasm (principal); C76.0 Malignant neoplasm of head, face and neck; I12.9 Hypertensive chronic kidney disease with stage 1 through stage 4 chronic kidney disease, or unspecified chronic kidney disease; E11.22 Type 2 diabetes mellitus with diabetic chronic kidney disease; N18.9 Chronic kidney disease, unspecified; Z88.8 Allergy status to other drugs, medicaments and biological substances; Z88.5 Allergy status to narcotic agent; Z88.1 Allergy status to other antibiotic agents; Z79.4 Long term (current) use of insulin; Z92.21 Personal history of antineoplastic chemotherapy; Z92.3 Personal history of irradiation; Z92.25 Personal history of immunosuppression therapy; Z86.73 Personal history of transient ischemic attack (TIA), and cerebral infarction without residual deficits; Z79.899 Other long term (current) drug therapy
CPT/HCPCS: 99283

== ENCOUNTER 2020-01-09 02:44 | Inpatient (IN) | payer MEDICARE, BC ==
[~2020-01-09] VITALS: Ht 154.9 cm; Wt 70.0 kg
[2020-01-09 03:16] LABS: BASOPHILS PERCENT AUTO 0 % (0-2); EOSINOPHILS ABSOLUTE AUTO 0.61 K/mm3 (0.00-0.68); EOSINOPHILS PERCENT AUTO 2 % (0-6); Hematocrit 40.5 % (33.0-51.0); Hemoglobin 11.5 g/dL (11.5-16.0); IMMATURE GRAN ABSOLUTE AUTO 0.26 K/mm3 (0.00-0.10); IMMATURE GRAN PERCENT AUTO 1 % (0-1); LYMPHOCYTES ABSOLUTE AUTO 2.27 K/mm3 (0.84-5.20); LYMPHOCYTES PERCENT AUTO 9 % (21-46); MONOCYTES ABSOLUTE AUTO 1.19 K/mm3 (0.16-1.47); MONOCYTES PERCENT AUTO 5 % (4-13); Mean Corpuscular HGB 27.4 pg (26.0-34.0); Mean Corpuscular HGB Conc 28.4 g/dL (31.5-36.5); Mean Corpuscular Volume 97 fL (80-100); NEUTROPHILS ABSOLUTE AUTO 21.42 K/mm3 (1.96-9.15); NEUTROPHILS PERCENT AUTO 83 % (41-73); NRBC ABSOLUTE 0.12 K/mm3 (0.00-0.02); NRBC Auto 0.5 /100 WBC (0.0-0.2); Platelet Count 160 K/mm3 (150-400); RDW Standard Deviation 64.7 fL (35.1-46.3); Red Blood Cell Count 4.19 M/mm3 (3.80-5.20); White Blood Cell Count 25.85 K/mm3 (4.00-11.30)
[2020-01-09] MEDS ORDERED: METO5 PO (03:25)
[2020-01-09] MEDS ORDERED: Diflucan100 MG PO (03:25)
[2020-01-09] MEDS ORDERED: NYSTATIN100000 UN2 (03:31)
[2020-01-09 03:36] LABS: Alanine Aminotransfer (ALT/SGP 13 U/L (12-78); Albumin, Blood 2.4 g/dL (3.4-5.0); Albumin/Globulin Ratio 0.6 (0.8-1.8); Alk Phos 165 U/L (50-136); Anion Gap 8 mmol/L (6-16); Aspartate Aminotrans (AST/SGOT 21 U/L (12-37); Bilirubin, Total 0.4 mg/dL (0.1-1.0); Blood Urea Nitrogen 41 mg/dL (8-24); Bun/Creatinine Ratio 16.3 (12.0-20.0); CO2, Blood 27 mmol/L (21-32); Calcium, Blood 10.9 mg/dL (8.5-10.1); Chloride, Blood 103 mmol/L (98-108); Creatinine, Blood 2.51 mg/dL (0.40-1.00); Glomerular Filtration Rate 20 (60-); Glucose, Blood 314 mg/dL (70-99); Potassium, Blood 4.6 mmol/L (3.5-5.5); Sodium, Blood 138 mmol/L (136-145); Total Protein, Blood 6.4 g/dL (6.4-8.2); Troponin I <0.015 ng/mL (0.000-0.040)
--- NOTE | 2020-01-09 19:43 | NUR ---
SHIFT SUMMARY: PATIENT ADMIT FROM ED THIS SHIFT. PT A&O; CALM AND COOPERATIVE WITH CARE. NO C/O PAIN THIS SHIFT. PEG TUBE IN USE; STRICT NPO. TUBE FEEDINGS TO START THIS PM. REPORT GIVEN TO ONCOMING RN.
--- NOTE | 2020-01-10 04:53 | NUR ---
01/10/20 0440 C/O HEADACHE AND MEDICATED PER JUL. PEG DRESSING COMING LOOSE AND SITE CLEANSED AND REDRESSED WITH GAUZE AND TAPE. VITALS STABLE. PT INSISTED TO REMAIN UP IN LOUNGE CHAIR. ASSISTED UP TO BR FOR BM'S AND VOIDINGS. PT FORGETFUL AND OCC WAS SIPPING ON ICE WATER USED FOR ORAL CARE. REMINDED HER ABOUT NOT DRINKING PER MD ORDER.
[2020-01-10 05:42] LABS: BASOPHILS ABSOLUTE AUTO 0.07 K/mm3 (0.00-0.23); BASOPHILS PERCENT AUTO 0 % (0-2); EOSINOPHILS PERCENT AUTO 0 % (0-6); Hematocrit 38.2 % (33.0-51.0); Hemoglobin 11.3 g/dL (11.5-16.0); IMMATURE GRAN ABSOLUTE AUTO 0.37 K/mm3 (0.00-0.10); IMMATURE GRAN PERCENT AUTO 1 % (0-1); LYMPHOCYTES ABSOLUTE AUTO 0.75 K/mm3 (0.84-5.20); LYMPHOCYTES PERCENT AUTO 2 % (21-46); MONOCYTES ABSOLUTE AUTO 0.25 K/mm3 (0.16-1.47); MONOCYTES PERCENT AUTO 1 % (4-13); Mean Corpuscular HGB 27.5 pg (26.0-34.0); Mean Corpuscular HGB Conc 29.6 g/dL (31.5-36.5); Mean Corpuscular Volume 93 fL (80-100); NEUTROPHILS PERCENT AUTO 96 % (41-73); NRBC ABSOLUTE 0.03 K/mm3 (0.00-0.02); NRBC Auto 0.1 /100 WBC (0.0-0.2); RDW Coefficient Variation 18.5 % (11.7-14.2); RDW Standard Deviation 60.9 fL (35.1-46.3); Red Blood Cell Count 4.11 M/mm3 (3.80-5.20); White Blood Cell Count 32.14 K/mm3 (4.00-11.30)
[2020-01-10 05:51] LABS: Albumin, Blood 1.8 g/dL (3.4-5.0); Albumin/Globulin Ratio 0.4 (0.8-1.8); Bilirubin, Total 0.3 mg/dL (0.1-1.0); Bun/Creatinine Ratio 22.3 (12.0-20.0); Calcium, Blood 9.9 mg/dL (8.5-10.1); Creatinine, Blood 1.79 mg/dL (0.40-1.00); Globulin, Blood 4.1 g/dL (2.2-4.0); Phosphorus, Blood 2.9 mg/dL (2.5-4.9); Potassium, Blood 4.2 mmol/L (3.5-5.5); Total Protein, Blood 5.9 g/dL (6.4-8.2)
[2020-01-10 06:01] LABS: Mean Platelet Volume 12.3 fL (9.1-12.4); Platelet Count 93 K/mm3 (150-400)
--- NOTE | 2020-01-10 11:22 | NUR ---
Pt. is sitting in a chair and is doing much better prayed for pt.
--- NOTE | 2020-01-10 17:44 | NUR ---
PT IS AOX3 WITH SOME CONFUSION. PT HAS BEEN TOLERATING HER BOLUS FEEDING. 1500 FEEDING WAS HELD DUE TO RESIDUAL OF 245 SO SHE WAS JUST GIVEN WATER INSTEAD. PT SITS UP IN CHAIR, BUT WILL BE IMPULSIVE AT TIMES IF SHE HAS JUST WOKE UP OR AND ALARM IS GOING OF. IV WAS REMOVED TODAY AND NO IV ACCESS ORDER WAS PLACED. PT HAS FAMILY MEMBER IN ROOM AT THIS TIME. PT ALSO HAS STARTED SHIFT WITH HIGH CBG OF [address] AQUINO WAS NOTIFIED AND SHE WAS TREATED PER EMAR. NEXT CBG SHE WAS STILL [address] AQUINO ORDERED 14 UNIT ONE TIME DOSE OF HUMALOG AND CHANGED HER TO MEDIUM SLIDING SCALE. PT ALSO WILL PULL AT HER TELEMETRY AND HER PEG TUBE AT TIMES HAS TO BE CHECKED ON OFTEN IF BY HERSELF. WILL CONTINUE TO MONITOR.
[2020-01-11 05:47] LABS: BASOPHILS ABSOLUTE AUTO 0.18 K/mm3 (0.00-0.23); BASOPHILS PERCENT AUTO 0 % (0-2); EOSINOPHILS ABSOLUTE AUTO 0.01 K/mm3 (0.00-0.68); EOSINOPHILS PERCENT AUTO 0 % (0-6); Hematocrit 34.4 % (33.0-51.0); Hemoglobin 10.5 g/dL (11.5-16.0); IMMATURE GRAN ABSOLUTE AUTO 1.37 K/mm3 (0.00-0.10); IMMATURE GRAN PERCENT AUTO 3 % (0-1); LYMPHOCYTES ABSOLUTE AUTO 0.67 K/mm3 (0.84-5.20); LYMPHOCYTES PERCENT AUTO 1 % (21-46); MONOCYTES ABSOLUTE AUTO 0.64 K/mm3 (0.16-1.47); MONOCYTES PERCENT AUTO 1 % (4-13); Mean Corpuscular HGB 27.7 pg (26.0-34.0); Mean Corpuscular HGB Conc 30.5 g/dL (31.5-36.5); Mean Corpuscular Volume 91 fL (80-100); Mean Platelet Volume 10.8 fL (9.1-12.4); NEUTROPHILS ABSOLUTE AUTO 43.52 K/mm3 (1.96-9.15); NEUTROPHILS PERCENT AUTO 94 % (41-73); NRBC ABSOLUTE 0.02 K/mm3 (0.00-0.02); Platelet Count 183 K/mm3 (150-400); RDW Coefficient Variation 18.6 % (11.7-14.2); RDW Standard Deviation 58.2 fL (35.1-46.3); Red Blood Cell Count 3.79 M/mm3 (3.80-5.20); White Blood Cell Count 46.39 K/mm3 (4.00-11.30)
[2020-01-11 06:03] LABS: Bun/Creatinine Ratio 25.9 (12.0-20.0); Calcium, Blood 10.8 mg/dL (8.5-10.1); Creatinine, Blood 1.66 mg/dL (0.40-1.00); Magnesium, Blood 2.1 mg/dL (1.6-2.4); Potassium, Blood 4.1 mmol/L (3.5-5.5)
--- NOTE | 2020-01-11 06:28 | NUR ---
01/11/20 0615 PT SLEPT POORLY LAST NIGHT SHE DID PREVIOUS NIGHT. MEDICATED FOR PEG TUBE INSERTION SITE DISCOMFORT PER JUL. VITALS STABLE. IMPULSIVE AND FORGETS TO USE CALL [facility] EVEN WITH FREQUENT REMINDERS. HAVING SOFT BROWN BMS THAT ARE NOW BECOMING LOOSE. PEG TUBE BOLUS FEEDINGS PER SCHEDULE. ONLY 80 ML OF RESIDUAL THIS SHIFT. CHAIR ALARM ON FOR SAFETY.
--- NOTE | 2020-01-11 12:30 | NUR ---
[facility] visit per Dr RICO and Family request. Introduced myself to family members that I had not met on prev admission. Pt remembered me from recent previous admission. Pt slept on and off in her chair while I spoke with son, John, who is pt's surrogate medical decision maker. Nikki had told me this on numerous visits before and John brought copies of medical POA with him. Copies were made and placed on chart and sent to medical records after our visit. Pt's son and family understand that the Drs are recommending hospice and are in favor of this. I answered their questions re: d/c planning for hospice. Family aware that pt needs more care than her niki can provide locally and their ultimate goal is to take her back to [place] with them and get her on hospice there. They plan to be here in [place] for one week. Discussed possible options and Nita from [facility] came to discuss with them. Eventually, family discussed best case scenario and decided that when pt is d/c'd they would go directly to [place]. John expresses concern that his mom is not able to make decisions for herself at this time. I agree and shared with him that when I spoke with his mom last month, she would always defer to her daughter and they would both defer to John and say, John needs to decide. Pt appears profoundly fatigued and overwhelmed. I am unsure if she understands all that is being discussed in regard to care options from Drs, nurses and staff. I had asked pt if she would prefer John make future decisions and that I talk with him. She said yes and then with help, ambulated to the bathroom while family and I continued problem solving pt's care needs at this time. I believe pt would tolerate a trip to [place] at this time but may not be comfortable doing that in the near future. I believe their decision to get her to [place] where there are multiple family members to care for her and provide respite for each other is a very good plan. Updated both DR RICO on pt's family wishes and plans. Pt needs one person assist to stand and ambulate with a walker. She will need a tub transfer bench. She denies pain and states nausea is much better at this time. She appears calm, and exhausted.
--- NOTE | 2020-01-11 13:26 | NUR ---
Pt. is doing much better sitting in a chair and talking with her visitors in the room prayed and encouraged pt.
--- NOTE | 2020-01-11 16:58 | NUR ---
PT AOX3 AND COOPERATIVE OF CARE WITH MOMENTS OF INCREASED CONFUSION. PT CAN BE IMPULSIVE AND AT TIMES WILL TRY TO GET UP ON HER OWN. BED AND CHAIR ALARMS ARE IN PLACE. PT TREATED FOR HEADACHE PER EMAR. PT HAS BEEN HAVING A LOT OF WATERY STOOL TODAY AND DR CASTELLON WAS NOTIFIED. DR CASTELLON ADDED MEDICATION TO EMAR. WILL CONTINUE TO MONITOR TO SEE IF IT WAS EFFECTIVE. PT HAS HAD FAMILY IN TO VISIT AND THEY HAVE BEEN WORKING WITH [facility] TO MAKE CARE CHOICES FOR THE PT TODAY. WILL CONTINUE TO MONITOR.
--- NOTE | 2020-01-11 18:28 | NUR ---
PUMP HAD BEEN STOPPED AND RESTARTED. PUMP DID NOT STOP AT THE SCHEDULED 240ML WITH FEEDING. EXTRA 188ML WAS GIVEN.
[2020-01-11 18:51] LABS: Campylobacter Sp Not Detected (NOT DETECT); Plesiomonas Shigelloides Not Detected (NOT DETECT); Salmonella Sp Not Detected (NOT DETECT); Vibrio Sp Not Detected (NOT DETECT); Yersinia Enterocolitica Not Detected (NOT DETECT)
[2020-01-11 18:52] LABS: Adenovirus F 40/41 Not Detected (NOT DETECT); Astrovirus Not Detected (NOT DETECT); Cryptosporidium Not Detected (NOT DETECT); Cyclospora Cayetanensis Not Detected (NOT DETECT); E. Coli O157 Not Detected (NOT DETECT); Entamoeba Histolytica Not Detected (NOT DETECT); Enteroaggregative E. coli-EAEC Not Detected (NOT DETECT); Enteropathogenic E. coli-EPEC Not Detected (NOT DETECT); Enterotoxigenic E. coli-ETEC Not Detected (NOT DETECT); Giardia Lamblia Not Detected (NOT DETECT); Norovirus GI/GII Not Detected (NOT DETECT); Rotavirus A Not Detected (NOT DETECT); Sapovirus Not Detected (NOT DETECT); Shiga Toxin-prod E. coli-STEC Not Detected (NOT DETECT); Shigella/Enteroin E. coli-EIEC Not Detected (NOT DETECT); Vibrio Cholerae Not Detected (NOT DETECT)
--- NOTE | 2020-01-12 03:23 | NUR ---
@0- 240ML BOLUS FEEDING GIVEN PER ORDER WITH 60ML OF PRE AND POST FEEDING FLUSH. PT. TOLERATED WELL. RESIDUAL OF 20ML THIS EVENING. PEG TUBE PATENT, DSG C/D/I. WILL CONT TO MONITOR.
--- NOTE | 2020-01-12 05:23 | NUR ---
SHIFT SUMMARY- PT. ALERT WITH INTERMITTENT CONFUSION. UP IN CHAIR T/O THE SHIFT SLEEPING ON/OFF. PT. IMPULSIVE, CALLS FOR ASSISTANCE OCCASIONALLY. PT. HAD SEVERAL LIQUID YELLOW STOOLS DURING THE SHIFT, ON ENETERIC PRECAUTIONS FOR C-DIFF. ABLE TO AMBULATE W/1 ASSIST AND WALKER TO THE BATHROOM, PULL UP IN PLACE. BOLUS TUBE FEEDINGS ADMINISTERED LAST NIGHT PER ORDER AND ADDITIONAL 250ML FLUSH DONE THIS AM PER ORDER WELL. PT. TOLERATED WELL. DENIED ANY PAIN OR DISCOMFORT THIS SHIFT. PLAN FOR PT. TO D/C ON HOSPICE WITH FAMILY TO [place]. PT. RESTING QUIETLY IN CHAIR, NO APPARENT DISTRESS NOTED. CALL LIGHT WITHIN REACH AND CHAIR ALARM ON FOR SAFETY, WILL CONT TO MONITOR.
--- NOTE | 2020-01-12 12:39 | NUR ---
PT REQUEST TUBE FEED 1-[address] CASTELLON. OKAY GIVE INSULIN WITH MEAL, [phone]. SPOKE TO PHARMICIST. STARTING KHALIF LATE THIS AM. GIVE NEXT DOSE AT 1400.
--- NOTE | 2020-01-12 18:23 | NUR ---
PT PLEASANT MOSTLY QUIET TODAY. HAS SLOWED ON DIARRHEA TODAY. CHELA PECK ADMIN WITH DEX NUTRITION. DAUGHTER THAT IS TO HELP AT HOME IS AVAILABLE AND HAS BEEN ADMINISTERING THE BOLUS FEEDING. IS GAINING CONFIDENCE AND DOING WELL. EXPECTING D/C TOMORROW. BED IN LOW POSITION, CALL LITE IN REACH, CALLS APPROP. BED ALARM ON FOR SAFETY
--- NOTE | 2020-01-12 22:18 | NUR ---
@2030- 240 ML BOLUS TUBE FEEDING GIVEN PER ORDER WITH 60ML PRE-POST FLUSH. PT. TOLERATED WELL. NO RESIDUAL NOTED. DSG CHANGE DONE AROUND PEG TUBE. AREA CLEANED W/WOUND YARDAGE CONTROL OPERATOR, GAUZE APPLIED, AND SECURED WITH ADHESIVE TAPE. PT. TOLERATED WELL. DENIED ANY PAIN OR DISCOMFORT. PT. RESTING QUIETLY IN CHAIR, NO APPARENT DISTRESS NOTED. CALL LIGHT WITHIN REACH AND CHAIR ALARM ON FOR SAFETY. WILL CONT TO MONITOR.
--- NOTE | 2020-01-13 05:42 | NUR ---
SHIFT SUMMARY- PT. SPENT THE ENTIRE SHIFT SITTING UP IN CHAIR, SLEPT MOST OF THE NIGHT. NO BM THIS SHIFT. DSG CHANGE TO PEG TUBE DONE EARLIER IN THE EVENING, TOLERATED WELL. C/O BARRETO X2, MEDICATED WITH TYLENOL PER EMAR WITH GOOD EFFECT. PT. RECEIVED SHOWER THIS AM AND DRESSED WITH CLOTHING FROM HOME IN ANTICIPATION OF D/C WITH FAMILY TODAY. PT. HAD NO OTHER COMPLAINTS, PLEASANT AND COOPERATIVE WITH CARE. CALL LIGHT WITHIN REACH AND CHAIR ALARM ON. WILL CONT TO MONITOR.
[2020-01-13] MEDS ORDERED: BASAGLAR K100 UNIT/1 SC (08:29)
[2020-01-13] MEDS ORDERED: HUMALOG KW100 UNIT/1 SC (08:30)
[2020-01-13] MEDS ORDERED: Percocet 5-3251 EACH PO (08:31)
[2020-01-13] MEDS ORDERED: DEXA4 PO (08:32)
[2020-01-13] MEDS ORDERED: ONDA4 PO (08:33)
[2020-01-13] MEDS ORDERED: NYSTOP15 GM TOP (08:33)
[2020-01-13] MEDS ORDERED: LOPE2C PO (08:33)
[2020-01-13] MEDS ORDERED: ZEGERID 20 MG1 EACH PO (08:34)
[2020-01-13] MEDS ORDERED: LACT PO (08:34)
[2020-01-13] MEDS ORDERED: LACT10SY PO (08:35)
--- NOTE | 2020-01-13 09:30 | NUR ---
PT PLEASANT COOP A/O. STATES SOME PAIN WITH H/ACHE. WILL MED PER EMAR. NO CHANGES NOTED TO NECK MASS. DAUGHTER TO COME IN TO DO TUBE FEEDING THIS AM. THEN EXPECTING D.C, DAUGHTER I SDOING WELL WITH INSTRUCTION AND TRAINING TO DO FEEDING AND TKUBE MANAGEMENT. H/R REG, NO MURMER NOTED. PER TELE NSR AT 79. LUNGS CLEAR, RESP EASY, UNLABORED. ON R.A. BT X4 LAST M YEST. VOIDS SBA TO BATHROOM. BED IN LOW POSITION, ESTHER LITE IN REACH, BED ALARM ON FOR SAFETY
--- NOTE | 2020-01-13 13:25 | NUR ---
DISCHARGE REVIEWED WITH PT AND DAUGHTER. BOTH VERBALIZED UNDERSTANDING MEDS AND INST. DR CASTELLON CLARIFIED ORDER FOR OMEPROZOLE AND GAVE RX TO PT. ALSO ACCEPTABLE TO GET 5 INS PINS PER PHA. THAT IS SMALLEST PKG THEY SELL. PT WHEELED TO DOOR BY AIDE AT 1194
[2020-01-13 14:07] LABS: HEPARIN INDUCED PLATELET AB 0.105 OD (0.000-0.400)
== END 2020-01-13 13:27 | disposition home or self-care (01) | DRG 683 ==
LOC: ER 02:44 → MEDS 06:27
PROVIDERS: Emergency Medicine; Internal Medicine; ADMIT Internal Medicine
DX: N17.9 Acute kidney failure, unspecified (principal); R65.10 Systemic inflammatory response syndrome (SIRS) of non-infectious origin without acute organ dysfunction; B37.0 Candidal stomatitis; E87.2 Acidosis; C76.0 Malignant neoplasm of head, face and neck; E86.0 Dehydration; E11.22 Type 2 diabetes mellitus with diabetic chronic kidney disease; I12.9 Hypertensive chronic kidney disease with stage 1 through stage 4 chronic kidney disease, or unspecified chronic kidney disease; N18.3 Chronic kidney disease, stage 3 (moderate); K21.9 Gastro-esophageal reflux disease without esophagitis; R13.10 Dysphagia, unspecified; D63.8 Anemia in other chronic diseases classified elsewhere; E11.65 Type 2 diabetes mellitus with hyperglycemia; K74.60 Unspecified cirrhosis of liver; D72.829 Elevated white blood cell count, unspecified; G31.84 Mild cognitive impairment of uncertain or unknown etiology; E83.52 Hypercalcemia; T38.0X5A Adverse effect of glucocorticoids and synthetic analogues, initial encounter; E88.09 Other disorders of plasma-protein metabolism, not elsewhere classified; D69.59 Other secondary thrombocytopenia; T45.1X5A Adverse effect of antineoplastic and immunosuppressive drugs, initial encounter; R19.7 Diarrhea, unspecified; Z86.73 Personal history of transient ischemic attack (TIA), and cerebral infarction without residual deficits; Z93.1 Gastrostomy status; Z79.899 Other long term (current) drug therapy; Z79.4 Long term (current) use of insulin; Z79.891 Long term (current) use of opiate analgesic; Z88.1 Allergy status to other antibiotic agents; Z88.5 Allergy status to narcotic agent; Z88.8 Allergy status to other drugs, medicaments and biological substances
CPT/HCPCS: 0097U; 36415; 70490; 71045; 80048; 80053; 82947; 83605; 83735; 83880; 84100; 84484; 85025; 86022; 87040; 87324; 93005; 93010; 96365; 96367; 99285-25; A9270; A9270-GY; J0295; J1650; J2405; J2543; J2930; J3370; J3486; J7030